=== PATIENT | female | born 1955 | race Caucasian/White ===

== ENCOUNTER 2016-09-26 10:51 | Inpatient (IN) | payer OTHER ==
[~2016-09-26] VITALS: Ht 157.5 cm; Wt 91.2 kg
[~2016-09-26 10:51] MED LIST: ACCOLATE20 MG; ACCOLATE20 MG PO; ADVAIR 250/501 DISK IH; ADVAIR 500/501 DISK IH; AMBIEN10 MG PO; ANTIVERT25 MG PO; ASCORBIC ACID500 M3 PO; ATROVENT 00.5 MG/2.5 IH; AVELOX400 MG PO; BACTRIM,SEPT1 TABLET; BYSTOLIC5 MG PO; CEFDINIR300 MG PO; COMBIVENT200 INHALA IH; COUGHTAB200 MG PO; COZAAR100 MG PO; COZAAR50 MG PO; CYCLOBENZAPRINE10 MG PO; DELTASONE20 M1 PO; DESYREL12.5 MG PO; DILAUDID2 MG PO; DULERA; DULERA 100 MCG/13 GM IH; DUONEB 2.5-0.5 M3 ML AEROSOL; DUONEB 2.5-0.5 M3 ML IH; ERGOCALCIF50000 UNIT PO; FLEXERIL10 MG PO; FUROSEMIDE20 MG; GABAPENTIN600 MG; GABAPENTIN600 MG PO; HUMALOG; HUMALOG100 UNIT/1 SC; HUMULIN N100 UNITS/ SC; HUMULIN NP100 UNIT/1 SC; HUMULIN R100 UNITS/ SC; HYDROXYZINE HCL25 MG PO; INSULIN; KADIAN30 MG PO; KEPPRA1000 MG PO; KEPPRA750 MG; KEPPRA750 MG PO; Keppra PO; LANTUS 10100 UNITS/ SC; LANTUS 3 M100 UNITS1 SC; LASIX20 MG PO; LEVETIRACETAM1000 MG PO; LEVETIRACETAM500 MG PO; LEVOTHROID,SYN0.1 MG PO; LEVOTHROID125 MCG PO; LEVOTHYROXINE125 MCG; LEVOTHYROXINE125 MCG PO; LEVOTHYROXINE137 MCG PO; LEVOXYL137 MCG PO; LORTAB 5-325 M1 EACH PO; LOSARTAN POTAS100 MG PO; LOSARTAN POTASS50 MG PO; MELOXICAM15 MG PO; METFORMIN HCL500 MG PO; MONTELUKAST SOD10 MG PO; MORPHINE SULFAT15 MG PO; MORPHINE SULFAT30 M2; MORPHINE SULFAT30 M2 PO; MS CONTIN,ORAMO30 MG PO; MULTI-VITAMIN1 EAC4 PO; NEURONTIN600 MG PO; NORCO 5/3251 TABLET PO; NORFLEX100 MG PO; NOVOLIN N100 UNIT/1 SQ; NOVOLIN N100 UNITS/ SC; NOVOLIN,HU100 UNITS1 SC; NOVOLOG100 UNIT/2 SQ; Neurontin PO; OXYCODONE HCL10 MG PO; PREDNISONE10 MG PO; PREDNISONE20 MG PO; PREDNISONE5 MG PO; QUETIAPINE FUM100 MG PO; SEROQUEL100 MG PO; SERTRALINE HCL100 MG PO; SERTRALINE HCL50 MG PO; SIMVASTATIN40 M1 G-TUBE; SIMVASTATIN80 MG; SIMVASTATIN80 MG PO; SINGULAIR10 MG PO; SYNTHROID112 MCG PO; SYNTHROID137 MCG PO; SYNTHROID25 MCG PO; TEMAZEPAM15 M1 PO; TUSSIN100 MG/5 M PO; VENTOLIN HFA18 GM IH; VICODIN 5-3001 EACH PO; VICODIN,LORT1 TABLET PO; VITAMIN B12 100MCG PO; ZAFIRLUKAST20 M1; ZAFIRLUKAST20 M1 PO; ZANAFLEX4 M1; ZESTRIL,PRINIVI10 MG PO; ZITHROMAX Z-PA250 MG PO; ZOCOR80 MG PO; ZOFRAN4 MG PO; ZOFRAN4 MG/2 ML IV; ZOLOFT100 MG; ZOLOFT100 MG PO; Zestril,Prinivil PO; metformin PO; oxyCODONE PO
[2016-09-26 11:44] LABS: HEMATOCRIT 35.3 % (36.0-46.0); MCH 26.4 PG (29.0-34.0); MCHC 31.4 G/DL (30.0-36.0); MCV 83.8 FL (83-99); PLATELET COUNT 132 K/uL (156-360); RBC DIS.WIDTH-CV 14.1 % (11.8-14.6); RBC DIS.WIDTH-SD 42.1 % (39-53); RED BLOOD COUNT 4.21 M/uL (3.80-5.20); WHITE BLOOD COUNT 9.6 K/uL (4.1-10.2)
[2016-09-26 12:04] LABS: CHLORIDE 102 mEq/L (99-109); POTASSIUM 4.9 mEq/L (3.7-5.4); SODIUM 137 mEq/L (136-147)
[2016-09-26 12:06] LABS: GLUCOSE 381 mg/dL (70-99)
[2016-09-26 12:07] LABS: ANION GAP 10 MEQ/L (2-14)
[2016-09-26 12:10] LABS: GFR ESTIMATE (CALCULATED) > 59 mL/min/; UREA NITROGEN (BUN) 17 mg/dL (9-23)
[2016-09-26 12:17] LABS: TROP-I INTERPRETATION NEGATIVE; TROPONIN-I < 0.01 ng/mL (0.0-0.30)
[2016-09-26] MEDS ORDERED: LOSARTAN POTAS100 MG PO (14:30)
[2016-09-26] MEDS ORDERED: CYCLOBENZAPRINE10 MG PO (14:31)
[2016-09-26] MEDS ORDERED: MECLIZINE HCL25 MG PO (14:31)
[2016-09-26] MEDS ORDERED: MORPHINE SULFAT30 M2 PO (14:32)
[2016-09-26 16:10] VITALS: BP 115/66
[2016-09-26 23:17] VITALS: BP 155/72
[2016-09-27 06:13] LABS: HEMATOCRIT 34.2 % (36.0-46.0); MCH 27.4 PG (29.0-34.0); MCHC 32.5 G/DL (30.0-36.0); MCV 84.4 FL (83-99); PLATELET COUNT 115 K/uL (156-360); RBC DIS.WIDTH-SD 43.2 % (39-53); RED BLOOD COUNT 4.05 M/uL (3.80-5.20); WHITE BLOOD COUNT 7.3 K/uL (4.1-10.2)
[2016-09-27 06:38] LABS: ANION GAP 7 MEQ/L (2-14); CHLORIDE 103 MEQ/L (99-109); GFR ESTIMATE (CALCULATED) > 59 mL/min/; GLUCOSE 398 mg/dL (70-99); POTASSIUM 5.1 MEQ/L (3.7-5.4); SAMPLE HEMOLYSIS CHECK 0; SAMPLE ICTERIC CHECK 0; SAMPLE LIPEMIA CHECK 0; SODIUM 138 MEQ/L (136-147); UREA NITROGEN (BUN) 23 mg/dL (9-23)
[2016-09-27 08:02] VITALS: BP 148/71
[2016-09-27 09:43] LABS: Estimated Average Glucose 243 mg/dL (70-123); HEMOGLOBIN A1c (GLYCOHEMOGLOB) 10.1 % HGB (Below 5.7)
[2016-09-27] MEDS ORDERED: BYSTOLIC5 MG PO (14:54)
[2016-09-27 15:07] VITALS: BP 131/72
[2016-09-27 22:54] VITALS: BP 143/78
[2016-09-28 06:32] LABS: EOSINOPHIL (%) 0 % (0-5); HEMATOCRIT 36.1 % (36.0-46.0); IMMATURE GRANULOCYTE (%) 0.4 % (0.0-0.7); IMMATURE GRANULOCYTE COUNT 0.1 K/uL; LYMPHOCYTE COUNT 0.9 K/uL (1.0-2.8); MCHC 31.6 G/DL (30.0-36.0); MCV 85.5 FL (83-99); MEAN PLAT.VOLUME 9.7 uM^3 (9.5-12.4); MONOCYTE COUNT 0.5 K/uL (0-0.8); NEUTROPHIL (%) 87.9 % (45-76); NEUTROPHIL COUNT 10.7 K/uL (1.8-6.4); RBC DIS.WIDTH-CV 14.4 % (11.8-14.6); RBC DIS.WIDTH-SD 44.8 % (39-53); RED BLOOD COUNT 4.22 M/uL (3.80-5.20)
[2016-09-28 06:35] LABS: WHITE BLOOD COUNT 12.2 K/uL (4.1-10.2)
[2016-09-28 06:36] LABS: PLATELET COUNT 152 K/uL (156-360)
[2016-09-28 06:52] LABS: ANION GAP 10 MEQ/L (2-14); CHLORIDE 99 MEQ/L (99-109); GFR ESTIMATE (CALCULATED) > 59 mL/min/; POTASSIUM 4.4 MEQ/L (3.7-5.4); SAMPLE HEMOLYSIS CHECK 0; SAMPLE ICTERIC CHECK 0; SAMPLE LIPEMIA CHECK 0; SODIUM 138 MEQ/L (136-147); UREA NITROGEN (BUN) 32 mg/dL (9-23)
[2016-09-28 06:53] LABS: GLUCOSE 405 mg/dL (70-99)
[2016-09-28 07:35] VITALS: BP 162/80
[2016-09-28 11:29] LABS: POINT-OF-CARE METER ID UU13113725
[2016-09-28 14:58] VITALS: BP 132/82
[2016-09-28 16:17] LABS: POINT-OF-CARE METER ID UU13113725
[2016-09-28 22:59] VITALS: BP 144/70
[2016-09-29 05:53] LABS: INFLUENZA A VIRAL ANTIGEN NEGATIVE; INFLUENZA B VIRAL ANTIGEN NEGATIVE
[2016-09-29 06:19] LABS: POINT-OF-CARE METER ID UU13113725
[2016-09-29 07:27] VITALS: BP 172/64
[2016-09-29] MEDS ORDERED: PREDNISONE20 MG PO (10:52)
[2016-09-29] MEDS ORDERED: CEFTIN500 MG PO (10:52)
[2016-09-29] MEDS ORDERED: DOXYCYCLINE HY100 M3 PO (10:52)
[2016-09-29 11:16] LABS: POINT-OF-CARE METER ID UU13113725
[2016-09-29 12:32] LABS: POINT-OF-CARE METER ID UU13113725
[2016-09-30 08:29] LABS: INTERNAL CONTROL VALID? YES
== END 2016-09-29 13:08 | disposition home health service (06) | DRG 190 ==
LOC: EME 10:51 → 5EAST 13:35 → EDOF 13:35 → 5EAST 15:31
PROVIDERS: Emergency Medicine; Hospitalist; Internal Medicine
PROC: 5A09357 Assistance with Respiratory Ventilation, Less than 24 Consecutive Hours, Continuous Positive Airway Pressure (ICD-10-PCS; principal; 2016-09-26)
DX: J44.0 Chronic obstructive pulmonary disease with (acute) lower respiratory infection (principal); J18.9 Pneumonia, unspecified organism; J44.1 Chronic obstructive pulmonary disease with (acute) exacerbation; G47.33 Obstructive sleep apnea (adult) (pediatric); J96.21 Acute and chronic respiratory failure with hypoxia; Z99.81 Dependence on supplemental oxygen; I10 Essential (primary) hypertension; E78.5 Hyperlipidemia, unspecified; E03.9 Hypothyroidism, unspecified; E11.65 Type 2 diabetes mellitus with hyperglycemia; E66.9 Obesity, unspecified; F41.9 Anxiety disorder, unspecified; G40.909 Epilepsy, unspecified, not intractable, without status epilepticus; Z68.36 Body mass index [BMI] 36.0-36.9, adult
CPT/HCPCS: 71010; 80048; 81003; 82948; 83036; 84484; 85025; 85027; 86609 90; 87040; 87449; 87502; 93005; 94640; 94640 76; 94660; 94760; 94799; 99202; 99281; 99285; J0456; J0696; J1644; J1815; J2543; J2920; J3370; J7050; J7512

== ENCOUNTER 2016-11-01 15:32 | Inpatient (IN) | payer OTHER ==
[~2016-11-01] VITALS: Ht 162.6 cm; Wt 89.1 kg
[~2016-11-01 15:32] MED LIST changes: +CEFTIN500 MG PO; +DOXYCYCLINE HY100 M3 PO; +MECLIZINE HCL25 MG PO
[2016-11-01 16:42] LABS: POINT-OF-CARE METER ID UU13113800
[2016-11-01 16:55] LABS: HEMATOCRIT 39.5 % (36.0-46.0); MCH 27.4 PG (29.0-34.0); MCHC 31.4 G/DL (30.0-36.0); MCV 87.2 FL (83-99); MEAN PLAT.VOLUME 11.1 uM^3 (9.5-12.4); PLATELET COUNT 115 K/uL (156-360); RBC DIS.WIDTH-CV 14.9 % (11.8-14.6); RBC DIS.WIDTH-SD 47.8 % (39-53); RED BLOOD COUNT 4.53 M/uL (3.80-5.20); WHITE BLOOD COUNT 6.3 K/uL (4.1-10.2)
[2016-11-01 17:07] LABS: CHLORIDE 103 mEq/L (99-109); POTASSIUM 4.6 mEq/L (3.7-5.4); SODIUM 141 mEq/L (136-147)
[2016-11-01 17:08] LABS: GLUCOSE 350 mg/dL (70-99)
[2016-11-01 17:10] LABS: ANION GAP 10 MEQ/L (2-14)
[2016-11-01 17:12] LABS: GFR ESTIMATE (CALCULATED) 41 mL/min/
[2016-11-01 17:13] LABS: UREA NITROGEN (BUN) 21 mg/dL (9-23)
[2016-11-01 17:14] LABS: TROP-I INTERPRETATION NEGATIVE; TROPONIN-I < 0.01 ng/mL (0.0-0.30)
[2016-11-01] MEDS ORDERED: ZONISAMIDE100 MG PO (20:02)
[2016-11-02] VITALS (7 sets, daily range): BP systolic 113–122; BP diastolic 55–84
[2016-11-02 05:49] LABS: HEMATOCRIT 33.4 % (36.0-46.0); MCH 26.8 PG (29.0-34.0); MCHC 30.5 G/DL (30.0-36.0); MCV 87.7 FL (83-99); MEAN PLAT.VOLUME 11.2 uM^3 (9.5-12.4); PLATELET COUNT 89 K/uL (156-360); RBC DIS.WIDTH-CV 15.3 % (11.8-14.6); RBC DIS.WIDTH-SD 48.9 % (39-53); RED BLOOD COUNT 3.81 M/uL (3.80-5.20); WHITE BLOOD COUNT 5.2 K/uL (4.1-10.2)
[2016-11-02 05:57] LABS: ANION GAP 7 MEQ/L (2-14); CHLORIDE 102 MEQ/L (99-109); GFR ESTIMATE (CALCULATED) > 59 mL/min/; GLUCOSE 389 mg/dL (70-99); SAMPLE HEMOLYSIS CHECK 0; SAMPLE ICTERIC CHECK 0; SAMPLE LIPEMIA CHECK 0; SODIUM 138 MEQ/L (136-147); UREA NITROGEN (BUN) 23 mg/dL (9-23)
[2016-11-02 22:15] LABS: POINT-OF-CARE METER ID UU14188577
[2016-11-03 05:54] LABS: EOSINOPHIL (%) 1.6 % (0-5); EOSINOPHIL COUNT 0.1 K/uL (0-0.3); HEMATOCRIT 28.8 % (36.0-46.0); IMMATURE GRANULOCYTE (%) 0.4 % (0.0-0.7); INSTRUMENT ABS NEUTROPHIL CT 3.2 K/uL; LYMPHOCYTE COUNT 1.4 K/uL (1.0-2.8); MCH 27.3 PG (29.0-34.0); MCHC 30.9 G/DL (30.0-36.0); MCV 88.3 FL (83-99); MONOCYTE COUNT 0.4 K/uL (0-0.8); NEUTROPHIL (%) 62.8 % (45-76); NEUTROPHIL COUNT 3.2 K/uL (1.8-6.4); PLATELET COUNT 69 K/uL (156-360); RBC DIS.WIDTH-CV 14.9 % (11.8-14.6); RED BLOOD COUNT 3.26 M/uL (3.80-5.20); WHITE BLOOD COUNT 5.1 K/uL (4.1-10.2)
[2016-11-03 06:16] LABS: ANION GAP 4 MEQ/L (2-14); CHLORIDE 105 MEQ/L (99-109); GFR ESTIMATE (CALCULATED) > 59 mL/min/; GLUCOSE 323 mg/dL (70-99); POTASSIUM 4.5 MEQ/L (3.7-5.4); SAMPLE HEMOLYSIS CHECK 0; SAMPLE ICTERIC CHECK 0; SAMPLE LIPEMIA CHECK 0; SODIUM 140 MEQ/L (136-147); UREA NITROGEN (BUN) 19 mg/dL (9-23)
[2016-11-03 06:43] LABS: POINT-OF-CARE METER ID UU14149397
[2016-11-03 08:00] VITALS: BP 111/53
[2016-11-03 12:02] LABS: POINT-OF-CARE METER ID UU14188577
[2016-11-03 16:00] VITALS: BP 122/68
[2016-11-03 16:42] LABS: POINT-OF-CARE METER ID UU14188577
[2016-11-03 22:16] LABS: POINT-OF-CARE METER ID UU14149397
[2016-11-03 22:26] VITALS: BP 128/70
[2016-11-04 08:38] LABS: EOSINOPHIL (%) 0.6 % (0-5); HEMATOCRIT 31.4 % (36.0-46.0); IMMATURE GRANULOCYTE (%) 0.9 % (0.0-0.7); IMMATURE GRANULOCYTE COUNT 0.1 K/uL; LYMPHOCYTE COUNT 1.1 K/uL (1.0-2.8); MCH 27.6 PG (29.0-34.0); MCHC 32.2 G/DL (30.0-36.0); MCV 85.8 FL (83-99); MEAN PLAT.VOLUME 10.7 uM^3 (9.5-12.4); MONOCYTE (%) 4.3 % (3-12); MONOCYTE COUNT 0.3 K/uL (0-0.8); NEUTROPHIL (%) 76.8 % (45-76); PLATELET COUNT 81 K/uL (156-360); RBC DIS.WIDTH-CV 14.6 % (11.8-14.6); RBC DIS.WIDTH-SD 45.8 % (39-53); RED BLOOD COUNT 3.66 M/uL (3.80-5.20); WHITE BLOOD COUNT 6.6 K/uL (4.1-10.2)
[2016-11-04 08:58] LABS: ANION GAP 8 MEQ/L (2-14); CHLORIDE 103 MEQ/L (99-109); POTASSIUM 4.1 MEQ/L (3.7-5.4); SAMPLE HEMOLYSIS CHECK 0; SAMPLE ICTERIC CHECK 0; SAMPLE LIPEMIA CHECK 0; SODIUM 139 MEQ/L (136-147)
[2016-11-04 09:03] LABS: GFR ESTIMATE (CALCULATED) > 59 mL/min/; GLUCOSE 316 mg/dL (70-99); UREA NITROGEN (BUN) 19 mg/dL (9-23)
[2016-11-04 10:41] VITALS: BP 131/72
[2016-11-04 11:57] LABS: POINT-OF-CARE METER ID UU14188577
[2016-11-04] MEDS ORDERED: VIMPAT50 MG PO (12:27)
[2016-11-04] MEDS ORDERED: ZONISAMIDE100 MG PO (12:27)
[2016-11-04 16:58] VITALS: BP 125/60
[2016-11-04 23:37] VITALS: BP 140/79
[2016-11-05 08:30] VITALS: BP 127/60
== END 2016-11-05 13:15 | DRG 101 ==
LOC: EME 15:32 → EDOF 19:44 → 3EAST 19:44
PROVIDERS: Hospitalist; Physician Assistant Medical; Student in an Organized Health Care Education/Training Program
DX: G40.909 Epilepsy, unspecified, not intractable, without status epilepticus (principal); S82.201A Unspecified fracture of shaft of right tibia, initial encounter for closed fracture; S82.401A Unspecified fracture of shaft of right fibula, initial encounter for closed fracture; W18.30XA Fall on same level, unspecified, initial encounter; Y92.000 Kitchen of unspecified non-institutional (private) residence as the place of occurrence of the external cause; T84.196A Other mechanical complication of internal fixation device of bone of right lower leg, initial encounter; N17.9 Acute kidney failure, unspecified; E11.65 Type 2 diabetes mellitus with hyperglycemia; G47.33 Obstructive sleep apnea (adult) (pediatric); D64.89 Other specified anemias; R26.89 Other abnormalities of gait and mobility; E55.9 Vitamin D deficiency, unspecified; I10 Essential (primary) hypertension; J44.9 Chronic obstructive pulmonary disease, unspecified; J45.909 Unspecified asthma, uncomplicated; G89.29 Other chronic pain; M54.2 Cervicalgia; K21.9 Gastro-esophageal reflux disease without esophagitis; E78.5 Hyperlipidemia, unspecified; E03.9 Hypothyroidism, unspecified; E11.40 Type 2 diabetes mellitus with diabetic neuropathy, unspecified; G43.909 Migraine, unspecified, not intractable, without status migrainosus; F32.9 Major depressive disorder, single episode, unspecified; Z79.4 Long term (current) use of insulin
CPT/HCPCS: 71010; 73564; 73610; 80048; 81003; 82306; 82948; 84484; 85025; 85027; 87040; 93005; 94640; 94640 76; 94799; 95819; 97530 GP; 99202; 99281; 99285; J1170; J1650; J1815; J2270; J7030

== ENCOUNTER 2016-11-16 19:47 | Inpatient (IN) | payer OTHER ==
[~2016-11-16] VITALS: Ht 157.5 cm; Wt 93.7 kg
[~2016-11-16 19:47] MED LIST changes: +VIMPAT50 MG PO; +ZONISAMIDE100 MG PO
[2016-11-16 20:54] LABS: ADD MIUA? YES; BILIRUBIN NEGATIVE; BLOOD NEGATIVE; COLOR YELLOW ((YELLOW)); GLUCOSE (STRIP) >=500; KETONES NEGATIVE; LEUKOCYTES LARGE; NITRITE NEGATIVE; PROTEIN (STRIP) 30; SPECIFIC GRAVITY 1.014 (1.000-1.030); UROBILINOGEN 0.2 MG/DL (0.2-1.0)
[2016-11-16 21:05] LABS: EOSINOPHIL (%) 3.3 % (0-5); EOSINOPHIL COUNT 0.2 K/uL (0-0.3); HEMATOCRIT 35.3 % (36.0-46.0); IMMATURE GRANULOCYTE (%) 0.3 % (0.0-0.7); INSTRUMENT ABS NEUTROPHIL CT 3.8 K/uL; LYMPHOCYTE COUNT 1.7 K/uL (1.0-2.8); MCH 27.7 PG (29.0-34.0); MCHC 30.9 G/DL (30.0-36.0); MCV 89.6 FL (83-99); MEAN PLAT.VOLUME 9.3 uM^3 (9.5-12.4); MONOCYTE (%) 6.8 % (3-12); MONOCYTE COUNT 0.4 K/uL (0-0.8); NEUTROPHIL (%) 62.1 % (45-76); NEUTROPHIL COUNT 3.8 K/uL (1.8-6.4); PLATELET COUNT 141 K/uL (156-360); RBC DIS.WIDTH-CV 15.2 % (11.8-14.6); RBC DIS.WIDTH-SD 49.7 % (39-53); RED BLOOD COUNT 3.94 M/uL (3.80-5.20); WHITE BLOOD COUNT 6.2 K/uL (4.1-10.2)
[2016-11-16 21:09] LABS: CHLORIDE 106 mEq/L (99-109); POTASSIUM 4.4 mEq/L (3.7-5.4); SODIUM 142 mEq/L (136-147)
[2016-11-16 21:11] LABS: GLUCOSE 121 mg/dL (70-99)
[2016-11-16 21:12] LABS: BACTERIA 1+ /HPF; EPITHELIAL CELLS 1+ /HPF; MUCUS NONE SEEN /LPF; RED BLOOD CELLS 0-5 /HPF (0-5); UCUL ADDED? NO; WHITE BLOOD CELLS 40-50 /HPF (0-5)
[2016-11-16 21:13] LABS: ANION GAP 11 MEQ/L (2-14)
[2016-11-16 21:15] LABS: GFR ESTIMATE (CALCULATED) 35 mL/min/
[2016-11-16 21:16] LABS: UREA NITROGEN (BUN) 26 mg/dL (9-23)
[2016-11-17] MEDS ORDERED: KEPPRA500 MG PO ×2 (00:22→00:29)
[2016-11-17] MEDS ORDERED: LIPITOR40 MG PO (00:26)
[2016-11-17] MEDS ORDERED: SEROQUEL50 MG PO (00:27)
[2016-11-17] MEDS ORDERED: SEROQUEL12.5 MG PO (00:28)
[2016-11-17] MEDS ORDERED: ZOLOFT50 MG PO (00:29)
[2016-11-17 04:00] VITALS: BP 104/59
[2016-11-17 07:38] VITALS: BP 132/63
[2016-11-17 07:50] LABS: POINT-OF-CARE METER ID UU14149397
[2016-11-17 11:46] VITALS: BP 141/67
[2016-11-17 16:04] VITALS: BP 158/88
[2016-11-17 16:53] LABS: POINT-OF-CARE METER ID UU14149397
[2016-11-17 19:41] VITALS: BP 152/68
[2016-11-17 21:35] LABS: POINT-OF-CARE METER ID UU14149397
[2016-11-17 23:29] VITALS: BP 174/83
[2016-11-18 07:57] VITALS: BP 147/70
[2016-11-18 11:01] LABS: ANION GAP 6 MEQ/L (2-14); CHLORIDE 104 MEQ/L (99-109); GFR ESTIMATE (CALCULATED) > 59 mL/min/; POTASSIUM 4.6 MEQ/L (3.7-5.4); SAMPLE HEMOLYSIS CHECK 0; SAMPLE ICTERIC CHECK 0; SAMPLE LIPEMIA CHECK 0; SODIUM 139 MEQ/L (136-147); UREA NITROGEN (BUN) 13 mg/dL (9-23)
[2016-11-18 11:02] LABS: GLUCOSE 264 mg/dL (70-99)
[2016-11-18 16:16] VITALS: BP 181/55
[2016-11-18 16:58] LABS: POINT-OF-CARE METER ID UU14149397
[2016-11-18 18:51] VITALS: BP 181/53
[2016-11-18 21:18] LABS: POINT-OF-CARE METER ID UU14188577
[2016-11-18 23:58] VITALS: BP 116/65
[2016-11-19 08:20] VITALS: BP 125/65
[2016-11-19 11:53] LABS: POINT-OF-CARE METER ID UU14188577
[2016-11-19] MEDS ORDERED: LEVETIRACETAM500 MG PO (15:14)
[2016-11-19] MEDS ORDERED: HYDROMORPHONE HC2 MG PO ×2 (15:15→15:18)
[2016-11-19 16:22] VITALS: BP 149/80
[2016-11-19 16:42] LABS: POINT-OF-CARE METER ID UU14149397
[2016-11-19 21:39] LABS: POINT-OF-CARE METER ID UU14149397
[2016-11-19 23:10] VITALS: BP 175/79
[2016-11-20 07:13] VITALS: BP 168/71
[2016-11-20 12:08] LABS: POINT-OF-CARE METER ID UU14149397
[2016-11-20 15:03] VITALS: BP 164/59
[2016-11-20 20:05] VITALS: BP 168/80
[2016-11-21 08:09] VITALS: BP 119/89
[2016-11-21 12:36] VITALS: BP 161/81
== END 2016-11-21 13:21 | DRG 683 ==
LOC: EME → EDBD 19:47 → 3EAST 23:56 → EDOF 23:56 → 3EAST 11-17 01:21
PROVIDERS: Emergency Medicine; Internal Medicine
DX: N17.9 Acute kidney failure, unspecified (principal); F33.9 Major depressive disorder, recurrent, unspecified; G40.409 Other generalized epilepsy and epileptic syndromes, not intractable, without status epilepticus; G47.30 Sleep apnea, unspecified; K21.9 Gastro-esophageal reflux disease without esophagitis; G43.909 Migraine, unspecified, not intractable, without status migrainosus; E03.9 Hypothyroidism, unspecified; I95.9 Hypotension, unspecified; E78.5 Hyperlipidemia, unspecified; I10 Essential (primary) hypertension; S82.201D Unspecified fracture of shaft of right tibia, subsequent encounter for closed fracture with routine healing; E11.9 Type 2 diabetes mellitus without complications; G89.29 Other chronic pain
CPT/HCPCS: 71010; 73590; 80048; 81003; 82948; 83605; 85025; 87040; 94760; 99202; 99281; 99285; J0696; J1815; J7030; J7050

== ENCOUNTER 2016-12-25 11:51 | Inpatient (IN) | payer OTHER ==
[~2016-12-25] VITALS: Ht 160 cm; Wt 89.5 kg
[~2016-12-25 11:51] MED LIST changes: +HYDROMORPHONE HC2 MG PO; +KEPPRA500 MG PO; +LIPITOR40 MG PO; +SEROQUEL12.5 MG PO; +SEROQUEL50 MG PO; +ZOLOFT50 MG PO
[2016-12-25 12:31] LABS: POINT-OF-CARE METER ID UU14100415
[2016-12-25 13:28] LABS: CHLORIDE 99 mEq/L (99-109); HEMATOCRIT 37.8 % (36.0-46.0); MCH 27.6 PG (29.0-34.0); MCHC 31.5 G/DL (30.0-36.0); MCV 87.7 FL (83-99); MEAN PLAT.VOLUME 10.7 uM^3 (9.5-12.4); PLATELET COUNT 89 K/uL (156-360); POTASSIUM 4.5 mEq/L (3.7-5.4); RBC DIS.WIDTH-CV 13.2 % (11.8-14.6); RBC DIS.WIDTH-SD 42.4 % (39-53); RED BLOOD COUNT 4.31 M/uL (3.80-5.20); SODIUM 139 mEq/L (136-147); WHITE BLOOD COUNT 5.6 K/uL (4.1-10.2)
[2016-12-25 13:31] LABS: ANION GAP 11 MEQ/L (2-14)
[2016-12-25 13:34] LABS: GFR ESTIMATE (CALCULATED) > 59 mL/min/
[2016-12-25 13:35] LABS: UREA NITROGEN (BUN) 12 mg/dL (9-23)
[2016-12-25 13:39] LABS: TROP-I INTERPRETATION NEGATIVE; TROPONIN-I < 0.01 ng/mL (0.0-0.30)
[2016-12-25 13:48] LABS: GLUCOSE 436 mg/dL (70-99)
[2016-12-25 14:10] LABS: ADD MIUA? YES; BILIRUBIN NEGATIVE; BLOOD NEGATIVE; COLOR YELLOW ((YELLOW)); GLUCOSE (STRIP) >=500; KETONES 5; LEUKOCYTES MODERATE; NITRITE NEGATIVE; PROTEIN (STRIP) NEGATIVE; SPECIFIC GRAVITY 1.016 (1.000-1.030); UROBILINOGEN 0.2 MG/DL (0.2-1.0)
[2016-12-25 14:22] LABS: BACTERIA RARE /HPF; BUDDING YEAST 3+; EPITHELIAL CELLS RARE /HPF; MUCUS TRACE /LPF; RED BLOOD CELLS 15-20 /HPF (0-5); UCUL ADDED? YES; WHITE BLOOD CELLS TNTC /HPF (0-5)
[2016-12-25] MEDS ORDERED: SIMVASTATIN80 MG PO (15:23)
[2016-12-25] MEDS ORDERED: ZONISAMIDE100 MG PO (15:24)
[2016-12-25] MEDS ORDERED: KEPPRA500 MG PO ×2 (15:24)
[2016-12-25] MEDS ORDERED: FLEXERIL10 MG PO (15:25)
[2016-12-25] MEDS ORDERED: MECLIZINE HCL25 MG PO (15:25)
[2016-12-25] MEDS ORDERED: SINGULAIR10 MG PO (15:26)
[2016-12-25] MEDS ORDERED: HUMULIN N100 UNITS/ SC (15:26)
[2016-12-25] MEDS ORDERED: MORPHINE SULFAT30 M2 PO (15:26)
[2016-12-25 15:59] LABS: POINT-OF-CARE METER ID UU14100415
[2016-12-25 16:40] VITALS: BP 146/66
[2016-12-25 17:42] LABS: BASE EXCESS 3.1 mEq/L (-3 to +3); CARBOXY HGB 2.1 % (0-5); METHEMOGLOBIN 1.4 % (0-1.5); PO2 65 mm Hg (80-100); pH 7.38 (7.35-7.45)
[2016-12-25 17:43] LABS: COMMENTS - BLOOD GASES A+C+; DEVICE CANNULA; O2 FLOW 1 L/MIN; PCO2 49 mm Hg (35-45); SITE RR; TOTAL RESP RATE 16 resp/min
[2016-12-25 19:27] VITALS: BP 141/70
[2016-12-25 19:58] LABS: METH RESISTANT S AUREUS PCR NEGATIVE (NEGATIVE)
[2016-12-25 20:05] LABS: PROBE CHECK PASS; SPECIMEN PROCESSING CONTROL PASS
[2016-12-25 22:39] VITALS: BP 174/82
[2016-12-25 23:35] VITALS: BP 159/80
[2016-12-26 03:57] VITALS: BP 149/73
[2016-12-26 06:03] LABS: POINT-OF-CARE METER ID UU13113725
[2016-12-26 06:33] LABS: MCH 28.6 PG (29.0-34.0); MCHC 32.8 G/DL (30.0-36.0); MCV 87.2 FL (83-99); MEAN PLAT.VOLUME 10.2 uM^3 (9.5-12.4); PLATELET COUNT 98 K/uL (156-360); RBC DIS.WIDTH-CV 13.3 % (11.8-14.6); RBC DIS.WIDTH-SD 42.6 % (39-53); RED BLOOD COUNT 3.67 M/uL (3.80-5.20); WHITE BLOOD COUNT 8.1 K/uL (4.1-10.2)
[2016-12-26 07:00] LABS: ANION GAP 8 MEQ/L (2-14); CHLORIDE 102 MEQ/L (99-109); GFR ESTIMATE (CALCULATED) > 59 mL/min/; GLUCOSE 368 mg/dL (70-99); POTASSIUM 4.3 MEQ/L (3.7-5.4); SAMPLE HEMOLYSIS CHECK 0; SAMPLE ICTERIC CHECK 0; SAMPLE LIPEMIA CHECK 0; SODIUM 138 MEQ/L (136-147); UREA NITROGEN (BUN) 14 mg/dL (9-23)
[2016-12-26 07:10] VITALS: BP 114/55
[2016-12-26 10:56] LABS: POINT-OF-CARE METER ID UU13113725
[2016-12-26 11:49] VITALS: BP 129/58
[2016-12-26 11:54] LABS: POINT-OF-CARE METER ID UU13113725
[2016-12-26 15:27] VITALS: BP 144/62
[2016-12-26 19:02] VITALS: BP 133/65
[2016-12-26 23:23] VITALS: BP 129/67
[2016-12-27 03:04] VITALS: BP 140/58
[2016-12-27 07:25] LABS: ANION GAP 10 MEQ/L (2-14); CHLORIDE 103 MEQ/L (99-109); GFR ESTIMATE (CALCULATED) > 59 mL/min/; POTASSIUM 4.4 MEQ/L (3.7-5.4); SAMPLE HEMOLYSIS CHECK 0; SAMPLE ICTERIC CHECK 0; SAMPLE LIPEMIA CHECK 0; SODIUM 138 MEQ/L (136-147); UREA NITROGEN (BUN) 19 mg/dL (9-23)
[2016-12-27 07:26] LABS: GLUCOSE 438 mg/dL (70-99)
[2016-12-27 07:55] VITALS: BP 172/81
[2016-12-27 12:18] LABS: GFR ESTIMATE (CALCULATED) > 59 mL/min/
[2016-12-27 14:02] VITALS: BP 145/71
[2016-12-27 16:51] VITALS: BP 139/65
[2016-12-27 20:01] VITALS: BP 146/70
[2016-12-27 23:23] VITALS: BP 133/73
[2016-12-27 23:33] LABS: POINT-OF-CARE METER ID UU13113725
[2016-12-28 03:31] VITALS: BP 141/76
[2016-12-28 06:44] VITALS: BP 187/88
[2016-12-28 11:05] VITALS: BP 148/85
[2016-12-28 16:45] VITALS: BP 157/73
[2016-12-28 19:27] VITALS: BP 144/78
[2016-12-29 00:05] VITALS: BP 166/76
[2016-12-29 03:47] VITALS: BP 175/90
[2016-12-29 03:57] VITALS: BP 176/86
[2016-12-29 05:25] VITALS: BP 160/77
[2016-12-29 06:52] VITALS: BP 188/84
[2016-12-29 08:25] LABS: ANION GAP 9 MEQ/L (2-14); CHLORIDE 101 MEQ/L (99-109); GFR ESTIMATE (CALCULATED) > 59 mL/min/; GLUCOSE 363 mg/dL (70-99); POTASSIUM 4.8 MEQ/L (3.7-5.4); SAMPLE HEMOLYSIS CHECK 0; SAMPLE ICTERIC CHECK 0; SAMPLE LIPEMIA CHECK 0; SODIUM 141 MEQ/L (136-147); UREA NITROGEN (BUN) 22 mg/dL (9-23)
[2016-12-29] MEDS ORDERED: PREDNISONE20 MG PO (10:50)
[2016-12-29] MEDS ORDERED: LEVEMIR100 UNIT/2 SC (10:50)
[2016-12-29] MEDS ORDERED: AMLODIPINE BESY10 MG PO (10:50)
[2016-12-29] MEDS ORDERED: SPIRIVA RESPIMAT4 GM IH (10:50)
[2016-12-29] MEDS ORDERED: AUGMENTIN875 MG PO (10:50)
[2016-12-29] MEDS ORDERED: ADVAIR HFA120 INHALA IH (10:50)
[2016-12-29 16:15] LABS: POINT-OF-CARE METER ID UU13113725
[2016-12-29 16:17] LABS: POINT-OF-CARE METER ID UU13113725
== END 2016-12-29 12:20 | disposition home health service (06) | DRG 190 ==
LOC: EME 11:51 → 5EAST 14:51 → EDOF 14:51 → 5EAST 16:08
PROVIDERS: Emergency Medicine; Hospitalist; Internal Medicine; Internal Medicine Pulmonary Disease
DX: J44.1 Chronic obstructive pulmonary disease with (acute) exacerbation (principal); J96.22 Acute and chronic respiratory failure with hypercapnia; J98.11 Atelectasis; J96.21 Acute and chronic respiratory failure with hypoxia; E87.4 Mixed disorder of acid-base balance; F11.20 Opioid dependence, uncomplicated; F05 Delirium due to known physiological condition; F33.9 Major depressive disorder, recurrent, unspecified; G47.33 Obstructive sleep apnea (adult) (pediatric); E03.9 Hypothyroidism, unspecified; G40.909 Epilepsy, unspecified, not intractable, without status epilepticus; J98.4 Other disorders of lung; Z99.81 Dependence on supplemental oxygen; E11.65 Type 2 diabetes mellitus with hyperglycemia; I10 Essential (primary) hypertension; E78.5 Hyperlipidemia, unspecified; K21.9 Gastro-esophageal reflux disease without esophagitis; G43.909 Migraine, unspecified, not intractable, without status migrainosus; E66.9 Obesity, unspecified; Z68.34 Body mass index [BMI] 34.0-34.9, adult; G89.4 Chronic pain syndrome; Z87.442 Personal history of urinary calculi; J45.909 Unspecified asthma, uncomplicated
CPT/HCPCS: 36600; 71010; 71275; 80048; 80202; 81003; 82565; 82803; 82948; 83605; 84484; 85027; 87040; 87086; 87641; 93005; 93970; 94640; 94640 76; 94760; 94799; 99202; 99281; 99285; J0360; J0692; J1644; J1815; J2543; J2920; J2930; J3370; J7030; J7050; J7512; J7644

== ENCOUNTER 2017-01-12 22:17 | Inpatient (IN) | payer OTHER ==
[~2017-01-12] VITALS: Ht 162.6 cm; Wt 83.5 kg
[~2017-01-12 22:17] MED LIST changes: +ADVAIR HFA120 INHALA IH; +AMLODIPINE BESY10 MG PO; +AUGMENTIN875 MG PO; +LEVEMIR100 UNIT/2 SC; +SPIRIVA RESPIMAT4 GM IH
[2017-01-12 22:57] LABS: BASE EXCESS 0.2 mEq/L (-3 to +3); CARBOXY HGB 2.1 % (0-5); COMMENTS - BLOOD GASES C; DEVICE NC; O2 FLOW 4 L/MIN; PCO2 46 mm Hg (35-45); PO2 64 mm Hg (80-100); SITE LB; TOTAL RESP RATE 22 resp/min; pH 7.36 (7.35-7.45)
[2017-01-12 23:15] LABS: ADD MIUA? YES; BILIRUBIN NEGATIVE; BLOOD NEGATIVE; COLOR YELLOW ((YELLOW)); GLUCOSE (STRIP) >=500; KETONES NEGATIVE; LEUKOCYTES LARGE; NITRITE NEGATIVE; PROTEIN (STRIP) 30; SPECIFIC GRAVITY 1.017 (1.000-1.030); UROBILINOGEN 0.2 MG/DL (0.2-1.0)
[2017-01-12 23:25] LABS: CHLORIDE 102 mEq/L (99-109); POTASSIUM 4.1 mEq/L (3.7-5.4); SODIUM 136 mEq/L (136-147)
[2017-01-12 23:27] LABS: GLUCOSE 277 mg/dL (70-99)
[2017-01-12 23:28] LABS: ANION GAP 11 MEQ/L (2-14)
[2017-01-12 23:29] LABS: TOTAL BILIRUBIN 0.5 mg/dL (0.0-1.0)
[2017-01-12 23:31] LABS: ALKALINE PHOSPHATASE 259 IU/L (3-129); GFR ESTIMATE (CALCULATED) 49 mL/min/
[2017-01-12 23:32] LABS: UREA NITROGEN (BUN) 17 mg/dL (9-23)
[2017-01-12 23:37] LABS: TROP-I INTERPRETATION NEGATIVE; TROPONIN-I < 0.01 ng/mL (0.0-0.30)
[2017-01-12 23:42] LABS: EOSINOPHIL (%) 0.8 % (0-5); EOSINOPHIL COUNT 0.1 K/uL (0-0.3); HEMATOCRIT 36.5 % (36.0-46.0); IMMATURE GRANULOCYTE (%) 0.5 % (0.0-0.7); INSTRUMENT ABS NEUTROPHIL CT 7.8 K/uL; LYMPHOCYTE COUNT 0.5 K/uL (1.0-2.8); MCH 27.5 PG (29.0-34.0); MCHC 31.2 G/DL (30.0-36.0); MONOCYTE (%) 3.5 % (3-12); MONOCYTE COUNT 0.3 K/uL (0-0.8); NEUTROPHIL (%) 89.8 % (45-76); NEUTROPHIL COUNT 7.8 K/uL (1.8-6.4); PLATELET COUNT 109 K/uL (156-360); RBC DIS.WIDTH-CV 13.4 % (11.8-14.6); RBC DIS.WIDTH-SD 43.4 % (39-53); RED BLOOD COUNT 4.15 M/uL (3.80-5.20); WHITE BLOOD COUNT 8.7 K/uL (4.1-10.2)
[2017-01-13 00:26] LABS: RED BLOOD CELLS 0-5 /HPF (0-5); WHITE BLOOD CELLS TNTC /HPF (0-5)
[2017-01-13 00:27] LABS: BACTERIA 2+ /HPF; CASTS NONE SEEN /LPF; CRYSTALS NONE SEEN; EPITHELIAL CELLS RARE /HPF; MUCUS NONE SEEN /LPF; UCUL ADDED? YES
[2017-01-13 05:34] LABS: HEMATOCRIT 34.2 % (36.0-46.0); MCH 27.6 PG (29.0-34.0); MCHC 31.6 G/DL (30.0-36.0); MCV 87.5 FL (83-99); PLATELET COUNT 96 K/uL (156-360); RBC DIS.WIDTH-CV 13.3 % (11.8-14.6); RBC DIS.WIDTH-SD 42.9 % (39-53); RED BLOOD COUNT 3.91 M/uL (3.80-5.20); WHITE BLOOD COUNT 8.6 K/uL (4.1-10.2)
[2017-01-13 05:45] LABS: CHLORIDE 105 mEq/L (99-109)
[2017-01-13 05:46] LABS: POTASSIUM 4.6 mEq/L (3.7-5.4); SODIUM 137 mEq/L (136-147)
[2017-01-13 05:47] LABS: GLUCOSE 394 mg/dL (70-99)
[2017-01-13 05:49] LABS: ANION GAP 8 MEQ/L (2-14)
[2017-01-13 05:51] LABS: GFR ESTIMATE (CALCULATED) > 59 mL/min/
[2017-01-13 05:52] LABS: UREA NITROGEN (BUN) 17 mg/dL (9-23)
[2017-01-13 05:55] LABS: EOSINOPHIL (%) 0 % (0-5); HEMATOLOGY COMMENT 1 SMEAR COMPATIBLE; IMMATURE GRANULOCYTE (%) 1.3 % (0.0-0.7); IMMATURE GRANULOCYTE COUNT 0.1 K/uL; LYMPHOCYTE COUNT 0.4 K/uL (1.0-2.8); MONOCYTE (%) 1.5 % (3-12); MONOCYTE COUNT 0.1 K/uL (0-0.8); NEUTROPHIL (%) 92.5 % (45-76)
[2017-01-13 09:41] LABS: POINT-OF-CARE METER ID UU13113702
[2017-01-13] MEDS ORDERED: LEVETIRACETAM1000 MG PO ×2 (09:42→09:43)
[2017-01-13] MEDS ORDERED: QUETIAPINE FUM100 MG PO (09:45)
[2017-01-13] MEDS ORDERED: LIPITOR20 MG PO (09:46)
[2017-01-13 18:00] VITALS: BP 172/84
[2017-01-13 19:25] VITALS: BP 163/85
[2017-01-13 23:22] VITALS: BP 128/67
[2017-01-14 03:08] VITALS: BP 130/65
[2017-01-14 07:35] VITALS: BP 135/63
[2017-01-14 07:51] LABS: INTERNAL CONTROL VALID? YES
[2017-01-14 08:14] LABS: POINT-OF-CARE METER ID UU14100415
[2017-01-14 11:55] VITALS: BP 135/62
[2017-01-14 12:03] LABS: POINT-OF-CARE METER ID UU14162508
[2017-01-14 15:55] VITALS: BP 136/65
[2017-01-14 19:30] VITALS: BP 154/81
[2017-01-14 23:58] VITALS: BP 134/68
[2017-01-15 00:18] LABS: POINT-OF-CARE METER ID UU14162508
[2017-01-15 03:29] VITALS: BP 146/70
[2017-01-15 06:44] LABS: POINT-OF-CARE METER ID UU14162508
[2017-01-15 08:00] VITALS: BP 147/86
[2017-01-15 10:16] LABS: POINT-OF-CARE METER ID UU14162508; POINT-OF-CARE USER ID PUTDRM
[2017-01-15 10:16] LABS: POINT-OF-CARE METER ID UU14162508
[2017-01-15 11:50] VITALS: BP 152/76
[2017-01-15 11:59] LABS: POINT-OF-CARE METER ID UU14162508
[2017-01-15 16:21] VITALS: BP 180/82
[2017-01-15 18:12] LABS: GLUCOSE 470 mg/dL (70-99)
[2017-01-15 19:50] VITALS: BP 139/76
[2017-01-15 21:43] LABS: POINT-OF-CARE METER ID UU14162508
[2017-01-15 23:38] VITALS: BP 136/66
[2017-01-16 03:48] VITALS: BP 140/70
[2017-01-16 06:37] LABS: POINT-OF-CARE METER ID UU14162508
[2017-01-16 07:55] VITALS: BP 173/84
[2017-01-16 11:50] VITALS: BP 183/86
[2017-01-16 16:43] LABS: POINT-OF-CARE METER ID UU14162508
[2017-01-16 16:45] VITALS: BP 185/90
[2017-01-16 19:26] VITALS: BP 178/80
[2017-01-16 22:07] LABS: IMMUNOGLOBULIN A 82 MG/DL (40-350); IMMUNOGLOBULIN G 705 MG/DL (650-1600); IMMUNOGLOBULIN M 148 MG/DL (50-300)
[2017-01-16 23:58] VITALS: BP 177/61
[2017-01-17 03:00] VITALS: BP 177/81
[2017-01-17 07:30] VITALS: BP 193/88
[2017-01-17 07:34] LABS: POINT-OF-CARE METER ID UU14162508
[2017-01-17 07:51] LABS: EOSINOPHIL (%) 0.1 % (0-5); HEMATOCRIT 31.9 % (36.0-46.0); IMMATURE GRANULOCYTE COUNT 0.4 K/uL; INSTRUMENT ABS NEUTROPHIL CT 5.8 K/uL; LYMPHOCYTE COUNT 1.3 K/uL (1.0-2.8); MCH 27.9 PG (29.0-34.0); MCV 87.2 FL (83-99); MEAN PLAT.VOLUME 10.3 uM^3 (9.5-12.4); MONOCYTE (%) 3.6 % (3-12); MONOCYTE COUNT 0.3 K/uL (0-0.8); NEUTROPHIL (%) 74.6 % (45-76); NEUTROPHIL COUNT 5.8 K/uL (1.8-6.4); NRBC (%) 0.3 /100 WBC (0-0); PLATELET COUNT 108 K/uL (156-360); RBC DIS.WIDTH-CV 13.4 % (11.8-14.6); RBC DIS.WIDTH-SD 42.2 % (39-53); RED BLOOD COUNT 3.66 M/uL (3.80-5.20); WHITE BLOOD COUNT 7.7 K/uL (4.1-10.2)
[2017-01-17 08:16] LABS: ANION GAP 9 MEQ/L (2-14); CHLORIDE 103 MEQ/L (99-109); GFR ESTIMATE (CALCULATED) > 59 mL/min/; GLUCOSE 209 mg/dL (70-99); SAMPLE HEMOLYSIS CHECK 0; SAMPLE ICTERIC CHECK 0; SAMPLE LIPEMIA CHECK 0; SODIUM 141 MEQ/L (136-147); UREA NITROGEN (BUN) 15 mg/dL (9-23)
[2017-01-17 08:17] LABS: POTASSIUM 3.6 MEQ/L (3.7-5.4)
[2017-01-17] MEDS ORDERED: AMOX TR-K CLV1 EAC4 PO (10:46)
[2017-01-17 10:47] VITALS: BP 189/86
[2017-01-17] MEDS ORDERED: PREDNISONE5 MG PO (10:49)
[2017-01-17 11:30] LABS: POINT-OF-CARE METER ID UU14162508
[2017-01-17 12:40] VITALS: BP 167/77
[2017-01-17] MEDS ORDERED: LEVAQUIN750 MG PO (12:46)
[2017-01-18 22:00] LABS: POINT-OF-CARE METER ID UU14162508
== END 2017-01-17 13:28 | disposition home health service (06) | DRG 871 ==
LOC: EME → EDBD 22:17 → EME 22:17 → EDOF 01-13 03:26 → 2EAST 01-13 03:26
PROVIDERS: Emergency Medicine; Hospitalist; Internal Medicine
DX: A41.9 Sepsis, unspecified organism (principal); J44.0 Chronic obstructive pulmonary disease with (acute) lower respiratory infection; J18.9 Pneumonia, unspecified organism; J44.1 Chronic obstructive pulmonary disease with (acute) exacerbation; J96.11 Chronic respiratory failure with hypoxia; D64.9 Anemia, unspecified; D69.3 Immune thrombocytopenic purpura; E03.9 Hypothyroidism, unspecified; E11.22 Type 2 diabetes mellitus with diabetic chronic kidney disease; I12.9 Hypertensive chronic kidney disease with stage 1 through stage 4 chronic kidney disease, or unspecified chronic kidney disease; N18.9 Chronic kidney disease, unspecified; E78.5 Hyperlipidemia, unspecified; G40.909 Epilepsy, unspecified, not intractable, without status epilepticus; G47.33 Obstructive sleep apnea (adult) (pediatric); G89.4 Chronic pain syndrome; E66.01 Morbid (severe) obesity due to excess calories; N39.0 Urinary tract infection, site not specified; E11.65 Type 2 diabetes mellitus with hyperglycemia; T38.0X5A Adverse effect of glucocorticoids and synthetic analogues, initial encounter; Y95 Nosocomial condition; Z68.31 Body mass index [BMI] 31.0-31.9, adult; Z87.891 Personal history of nicotine dependence; Z91.19 Patient's noncompliance with other medical treatment and regimen; Z79.891 Long term (current) use of opiate analgesic
CPT/HCPCS: 36600; 70450; 71010; 71020; 71250; 74230; 80048; 80053; 80202; 81003; 82565; 82784 90; 82803; 82948; 83605; 84484; 84999; 85025; 87040; 87070; 87086; 87106; 87205; 87449; 87641; 92610 GN; 92611 GN; 93005; 93971; 94010; 94640; 94640 76; 94660; 94760; 94799; 99202; 99281; 99285; J0360; J0456; J0692; J1100; J1644; J1815; J1956; J2020; J2543; J3370; J7030; J7050; J7512

== ENCOUNTER 2017-01-30 21:03 | Inpatient (IN) | payer OTHER ==
[~2017-01-30] VITALS: Ht 165.1 cm; Wt 90.7 kg
[~2017-01-30 21:03] MED LIST changes: +AMOX TR-K CLV1 EAC4 PO; +LEVAQUIN750 MG PO; +LIPITOR20 MG PO
[2017-01-30 21:34] LABS: POINT-OF-CARE METER ID UU13113702; POINT-OF-CARE USER ID 611181311
[2017-01-30 21:45] LABS: BASE EXCESS 0.5 mEq/L (-3 to +3); BICARBONATE 27.3 mEq/L (22-26); CARBOXY HGB 2.2 % (0-5); METHEMOGLOBIN 1.2 % (0-1.5); pH 7.32 (7.35-7.45)
[2017-01-30 21:45] LABS: EOSINOPHIL COUNT 0.2 K/uL (0-0.3); HEMATOCRIT 37.5 % (36.0-46.0); IMMATURE GRANULOCYTE (%) 0.4 % (0.0-0.7); INSTRUMENT ABS NEUTROPHIL CT 5.1 K/uL; MCH 27.7 PG (29.0-34.0); MCHC 31.2 G/DL (30.0-36.0); MCV 88.7 FL (83-99); MEAN PLAT.VOLUME 10.7 uM^3 (9.5-12.4); MONOCYTE (%) 8.3 % (3-12); MONOCYTE COUNT 0.7 K/uL (0-0.8); NEUTROPHIL (%) 64.3 % (45-76); NEUTROPHIL COUNT 5.1 K/uL (1.8-6.4); PLATELET COUNT 135 K/uL (156-360); RBC DIS.WIDTH-CV 14.2 % (11.8-14.6); RBC DIS.WIDTH-SD 45.8 % (39-53); RED BLOOD COUNT 4.23 M/uL (3.80-5.20); WHITE BLOOD COUNT 7.9 K/uL (4.1-10.2)
[2017-01-30 21:46] LABS: COMMENTS - BLOOD GASES C+; DEVICE NC; O2 FLOW 3 L/MIN; PCO2 53 mm Hg (35-45); PO2 79 mm Hg (80-100); SITE RR; TOTAL RESP RATE 12 resp/min
[2017-01-30 22:06] LABS: TROP-I INTERPRETATION NEGATIVE; TROPONIN-I < 0.01 ng/mL (0.0-0.30)
[2017-01-30 22:17] LABS: ADD MIUA? YES; BILIRUBIN NEGATIVE; BLOOD NEGATIVE; COLOR AMBER ((YELLOW)); GLUCOSE (STRIP) >=500; KETONES 5; LEUKOCYTES LARGE; NITRITE NEGATIVE; PROTEIN (STRIP) 100; SPECIFIC GRAVITY 1.014 (1.000-1.030); UROBILINOGEN 0.2 MG/DL (0.2-1.0)
[2017-01-30 23:05] LABS: RED BLOOD CELLS TNTC /HPF (0-5); WHITE BLOOD CELLS TNTC /HPF (0-5)
[2017-01-30 23:06] LABS: BACTERIA 1+ /HPF; CASTS PRESENT /LPF; EPITHELIAL CELLS 1+ /HPF; HYALINE CASTS 0-5 /LPF; MUCUS NONE SEEN /LPF; UCUL ADDED? YES
[2017-01-31 05:00] VITALS: BP 96/58
[2017-01-31 05:18] LABS: CHLORIDE 111 mEq/L (99-109); POTASSIUM 4.4 mEq/L (3.7-5.4); SODIUM 141 mEq/L (136-147)
[2017-01-31 05:20] LABS: GLUCOSE 302 mg/dL (70-99)
[2017-01-31 05:21] LABS: ANION GAP 6 MEQ/L (2-14)
[2017-01-31 05:22] LABS: TOTAL BILIRUBIN 0.3 mg/dL (0.0-1.0)
[2017-01-31 05:23] LABS: ALKALINE PHOSPHATASE 201 IU/L (3-129)
[2017-01-31 05:24] LABS: GFR ESTIMATE (CALCULATED) 44 mL/min/
[2017-01-31 05:25] LABS: UREA NITROGEN (BUN) 18 mg/dL (9-23)
[2017-01-31 07:47] LABS: EOSINOPHIL (%) 1.8 % (0-5); EOSINOPHIL COUNT 0.1 K/uL (0-0.3); IMMATURE GRANULOCYTE (%) 0.2 % (0.0-0.7); INSTRUMENT ABS NEUTROPHIL CT 3.2 K/uL; LYMPHOCYTE COUNT 1.3 K/uL (1.0-2.8); MCH 28.3 PG (29.0-34.0); MCHC 31.3 G/DL (30.0-36.0); MCV 90.4 FL (83-99); MONOCYTE (%) 7.8 % (3-12); MONOCYTE COUNT 0.4 K/uL (0-0.8); NEUTROPHIL (%) 63.7 % (45-76); NEUTROPHIL COUNT 3.2 K/uL (1.8-6.4); RBC DIS.WIDTH-CV 14.2 % (11.8-14.6); RBC DIS.WIDTH-SD 46.8 % (39-53)
[2017-01-31 07:48] LABS: RED BLOOD COUNT 3.32 M/uL (3.80-5.20)
[2017-01-31 07:55] LABS: ALKALINE PHOSPHATASE 187 IU/L (3-129); ANION GAP 5 MEQ/L (2-14); CHLORIDE 107 MEQ/L (99-109); GFR ESTIMATE (CALCULATED) > 59 mL/min/; GLUCOSE 271 mg/dL (70-99); POTASSIUM 4.3 MEQ/L (3.7-5.4); SAMPLE HEMOLYSIS CHECK 0; SAMPLE ICTERIC CHECK 0; SAMPLE LIPEMIA CHECK 0; SODIUM 136 MEQ/L (136-147); TOTAL BILIRUBIN 0.4 MG/DL (0.0-1.0); UREA NITROGEN (BUN) 17 mg/dL (9-23)
[2017-01-31 08:38] LABS: MEAN PLAT.VOLUME 11.6 uM^3 (9.5-12.4); PLAT.SUFFICIENCY DECREASED
[2017-01-31 08:53] LABS: PLATELET COUNT 88 K/uL (156-360)
[2017-01-31 11:41] LABS: INTERNAL CONTROL VALID? YES
[2017-01-31] MEDS ORDERED: NORVASC10 MG PO (18:59)
[2017-01-31 19:05] LABS: ADD MIUA? YES; BILIRUBIN NEGATIVE; BLOOD NEGATIVE; COLOR YELLOW ((YELLOW)); GLUCOSE (STRIP) >=500; KETONES NEGATIVE; LEUKOCYTES LARGE; NITRITE NEGATIVE; PROTEIN (STRIP) NEGATIVE; SPECIFIC GRAVITY 1.014 (1.000-1.030); UROBILINOGEN 0.2 MG/DL (0.2-1.0)
[2017-01-31] MEDS ORDERED: PREDNISONE10 MG PO (19:06)
[2017-01-31 19:20] VITALS: BP 163/74
[2017-01-31 19:42] LABS: CASTS NONE SEEN /LPF; EPITHELIAL CELLS 1+ /HPF; MUCUS NONE SEEN /LPF
[2017-01-31 19:43] LABS: BACTERIA NONE SEEN /HPF; RED BLOOD CELLS NONE SEEN /HPF (0-5); WHITE BLOOD CELLS 40-50 /HPF (0-5)
[2017-01-31 23:33] VITALS: BP 144/69
[2017-02-01] VITALS (7 sets, daily range): BP systolic 104–194; BP diastolic 51–119
[2017-02-01 11:03] LABS: GFR ESTIMATE (CALCULATED) > 59 mL/min/
[2017-02-02 04:13] VITALS: BP 93/51
[2017-02-02 04:54] LABS: BASE EXCESS 1.1 mEq/L (-3 to +3); BICARBONATE 26.6 mEq/L (22-26); CARBOXY HGB 2.6 % (0-5); METHEMOGLOBIN 1.6 % (0-1.5); pH 7.37 (7.35-7.45)
[2017-02-02 04:55] LABS: PCO2 46 mm Hg (35-45)
[2017-02-02 04:56] LABS: FI02 21 %; PO2 59 mm Hg (80-100); SITE RR
[2017-02-02 05:20] VITALS: BP 139/60
[2017-02-02 07:35] VITALS: BP 139/68
[2017-02-02 07:46] LABS: HEMATOCRIT 26.8 % (36.0-46.0); MCH 27.7 PG (29.0-34.0); MCHC 32.1 G/DL (30.0-36.0); RBC DIS.WIDTH-CV 14.2 % (11.8-14.6); RBC DIS.WIDTH-SD 44.5 % (39-53); RED BLOOD COUNT 3.11 M/uL (3.80-5.20); WHITE BLOOD COUNT 4.3 K/uL (4.1-10.2)
[2017-02-02 07:47] LABS: MCV 86.2 FL (83-99)
[2017-02-02 08:07] LABS: ANION GAP 6 MEQ/L (2-14); CHLORIDE 108 MEQ/L (99-109); GFR ESTIMATE (CALCULATED) > 59 mL/min/; GLUCOSE 263 mg/dL (70-99); POTASSIUM 3.7 MEQ/L (3.7-5.4); SAMPLE HEMOLYSIS CHECK 0; SAMPLE ICTERIC CHECK 0; SAMPLE LIPEMIA CHECK 0; SODIUM 141 MEQ/L (136-147); UREA NITROGEN (BUN) 10 mg/dL (9-23)
[2017-02-02 08:44] LABS: MEAN PLAT.VOLUME 9.9 uM^3 (9.5-12.4)
[2017-02-02 08:59] LABS: PLATELET COUNT 60 K/uL (156-360)
[2017-02-02 12:01] VITALS: BP 131/65
[2017-02-02 15:40] VITALS: BP 120/58
[2017-02-02 23:44] VITALS: BP 133/73
[2017-02-03 08:40] VITALS: BP 141/73
[2017-02-03 09:36] LABS: HEMATOCRIT 28.6 % (36.0-46.0); MCH 28.3 PG (29.0-34.0); MCHC 32.5 G/DL (30.0-36.0); MCV 86.9 FL (83-99); MEAN PLAT.VOLUME 10.7 uM^3 (9.5-12.4); PLATELET COUNT 72 K/uL (156-360); RBC DIS.WIDTH-CV 14.2 % (11.8-14.6); RED BLOOD COUNT 3.29 M/uL (3.80-5.20); WHITE BLOOD COUNT 4.4 K/uL (4.1-10.2)
[2017-02-03 10:13] LABS: ANION GAP 10 MEQ/L (2-14); CHLORIDE 106 MEQ/L (99-109); POTASSIUM 3.7 MEQ/L (3.7-5.4); SAMPLE HEMOLYSIS CHECK 0; SAMPLE ICTERIC CHECK 0; SAMPLE LIPEMIA CHECK 0; SODIUM 140 MEQ/L (136-147)
[2017-02-03 10:18] LABS: GFR ESTIMATE (CALCULATED) > 59 mL/min/; GLUCOSE 288 mg/dL (70-99); UREA NITROGEN (BUN) 8 mg/dL (9-23)
[2017-02-03 12:17] LABS: POINT-OF-CARE METER ID UU14208750
[2017-02-03 15:47] VITALS: BP 163/81
[2017-02-03 16:34] LABS: POINT-OF-CARE METER ID UU14208750
[2017-02-03 21:35] LABS: POINT-OF-CARE METER ID UU14208750
[2017-02-03 23:15] VITALS: BP 139/66
[2017-02-04 08:50] VITALS: BP 155/72
[2017-02-04 10:48] LABS: HEMATOCRIT 29.4 % (36.0-46.0); MCV 87.5 FL (83-99); MEAN PLAT.VOLUME 11.2 uM^3 (9.5-12.4); PLATELET COUNT 66 K/uL (156-360); RBC DIS.WIDTH-CV 14.4 % (11.8-14.6); RBC DIS.WIDTH-SD 45.4 % (39-53); RED BLOOD COUNT 3.36 M/uL (3.80-5.20); WHITE BLOOD COUNT 4.6 K/uL (4.1-10.2)
[2017-02-04 11:17] LABS: ANION GAP 10 MEQ/L (2-14); CHLORIDE 107 MEQ/L (99-109); GFR ESTIMATE (CALCULATED) > 59 mL/min/; GLUCOSE 235 mg/dL (70-99); POTASSIUM 3.5 MEQ/L (3.7-5.4); SAMPLE HEMOLYSIS CHECK 0; SAMPLE ICTERIC CHECK 0; SAMPLE LIPEMIA CHECK 0; SODIUM 143 MEQ/L (136-147); UREA NITROGEN (BUN) 7 mg/dL (9-23)
[2017-02-04 12:34] VITALS: BP 180/72
[2017-02-04 17:47] VITALS: BP 131/72
[2017-02-04 23:06] VITALS: BP 161/76
[2017-02-05 06:43] LABS: HEMATOCRIT 28.2 % (36.0-46.0); MCH 28.2 PG (29.0-34.0); MCHC 32.6 G/DL (30.0-36.0); MCV 86.5 FL (83-99); MEAN PLAT.VOLUME 11.5 uM^3 (9.5-12.4); PLATELET COUNT 81 K/uL (156-360); RBC DIS.WIDTH-CV 14.4 % (11.8-14.6); RBC DIS.WIDTH-SD 44.8 % (39-53); RED BLOOD COUNT 3.26 M/uL (3.80-5.20); WHITE BLOOD COUNT 5.1 K/uL (4.1-10.2)
[2017-02-05 06:47] LABS: POINT-OF-CARE METER ID UU14208750
[2017-02-05 07:06] LABS: ANION GAP 8 MEQ/L (2-14); CHLORIDE 106 MEQ/L (99-109); GFR ESTIMATE (CALCULATED) > 59 mL/min/; GLUCOSE 239 mg/dL (70-99); POTASSIUM 3.6 MEQ/L (3.7-5.4); SAMPLE HEMOLYSIS CHECK 0; SAMPLE ICTERIC CHECK 0; SAMPLE LIPEMIA CHECK 0; SODIUM 142 MEQ/L (136-147); UREA NITROGEN (BUN) 8 mg/dL (9-23)
[2017-02-05 07:45] VITALS: BP 167/80
[2017-02-05] MEDS ORDERED: SPIRIVA RESPIMAT4 GM IH (11:16)
[2017-02-05] MEDS ORDERED: ADVAIR HFA120 INHALA IH (11:18)
[2017-02-05] MEDS ORDERED: METFORMIN HCL500 MG PO (11:19)
[2017-02-05] MEDS ORDERED: LEVEMIR100 UNIT/2 SC (11:19)
[2017-02-05] MEDS ORDERED: MORPHINE SULFAT15 M1 PO (11:24)
[2017-02-05 11:46] LABS: POINT-OF-CARE METER ID UU14208750
== END 2017-02-05 12:46 | disposition home health service (06) | DRG 637 ==
LOC: EME 21:03 → EDOF 01-31 04:16 → 4EAST 01-31 04:16 → 2EASTP 01-31 04:16 → 4EAST 01-31 05:05 → 2EASTP 02-01 15:59
PROVIDERS: Emergency Medicine; Hospitalist; Internal Medicine; Physician Assistant
PROC: 05HM33Z Insertion of Infusion Device into Right Internal Jugular Vein, Percutaneous Approach (ICD-10-PCS; principal; 2017-01-31)
DX: E11.65 Type 2 diabetes mellitus with hyperglycemia (principal); G93.40 Encephalopathy, unspecified; E87.2 Acidosis; F11.20 Opioid dependence, uncomplicated; D69.3 Immune thrombocytopenic purpura; B37.49 Other urogenital candidiasis; N30.01 Acute cystitis with hematuria; E03.9 Hypothyroidism, unspecified; E66.9 Obesity, unspecified; R09.02 Hypoxemia; I95.9 Hypotension, unspecified; I10 Essential (primary) hypertension; G89.4 Chronic pain syndrome; E78.5 Hyperlipidemia, unspecified; D64.9 Anemia, unspecified; G43.909 Migraine, unspecified, not intractable, without status migrainosus; G40.909 Epilepsy, unspecified, not intractable, without status epilepticus; J44.9 Chronic obstructive pulmonary disease, unspecified; Z79.84 Long term (current) use of oral hypoglycemic drugs; Z68.33 Body mass index [BMI] 33.0-33.9, adult; Z79.4 Long term (current) use of insulin; Z88.5 Allergy status to narcotic agent; Z90.49 Acquired absence of other specified parts of digestive tract; Z87.01 Personal history of pneumonia (recurrent)
CPT/HCPCS: 36600; 70450; 71010; 80048; 80053; 80202; 81003; 82565; 82803; 82948; 83605; 83880; 84484; 85025; 85027; 87040; 87070; 87086; 87106; 87205; 87449; 92610 GN; 93005; 94640; 94640 76; 94799; 97530 GP; 99202; 99281; 99285; J0360; J0456; J0692; J1644; J1815; J2310; J2405; J3370; J7030; J7050; S0028

== ENCOUNTER 2017-02-15 16:06 | Inpatient (IN) | payer OTHER ==
[~2017-02-15] VITALS: Ht 162.6 cm; Wt 64.0 kg
[~2017-02-15 16:06] MED LIST changes: +MORPHINE SULFAT15 M1 PO; +NORVASC10 MG PO
[2017-02-15 16:34] LABS: CHLORIDE 99 mEq/L (99-109); POTASSIUM 4.7 mEq/L (3.7-5.4); SODIUM 131 mEq/L (136-147)
[2017-02-15 16:35] LABS: HEMATOCRIT 33.1 % (36.0-46.0); MCH 26.5 PG (29.0-34.0); MCHC 31.4 G/DL (30.0-36.0); MCV 84.4 FL (83-99); MEAN PLAT.VOLUME 9.7 uM^3 (9.5-12.4); PLATELET COUNT 203 K/uL (156-360); RBC DIS.WIDTH-CV 13.9 % (11.8-14.6); RBC DIS.WIDTH-SD 43.2 % (39-53); RED BLOOD COUNT 3.92 M/uL (3.80-5.20); WHITE BLOOD COUNT 8.5 K/uL (4.1-10.2)
[2017-02-15 16:37] LABS: ANION GAP 9 MEQ/L (2-14)
[2017-02-15 16:40] LABS: GFR ESTIMATE (CALCULATED) 44 mL/min/
[2017-02-15 16:41] LABS: UREA NITROGEN (BUN) 27 mg/dL (9-23)
[2017-02-15 16:57] LABS: GLUCOSE 446 mg/dL (70-99)
[2017-02-15 18:18] LABS: ADD MIUA? YES; BILIRUBIN NEGATIVE; BLOOD NEGATIVE; COLOR YELLOW ((YELLOW)); GLUCOSE (STRIP) >=500; KETONES NEGATIVE; LEUKOCYTES NEGATIVE; NITRITE NEGATIVE; PROTEIN (STRIP) 30; SPECIFIC GRAVITY 1.014 (1.000-1.030); UROBILINOGEN 0.2 MG/DL (0.2-1.0)
[2017-02-15 18:25] LABS: BACTERIA NONE SEEN /HPF; BUDDING YEAST 3+; EPITHELIAL CELLS RARE /HPF; HYALINE CASTS 0-5 /LPF; MUCUS TRACE /LPF; UCUL ADDED? NO; WHITE BLOOD CELLS 0-5 /HPF (0-5)
[2017-02-15 18:29] LABS: POINT-OF-CARE METER ID UU14100415
[2017-02-15] MEDS ORDERED: ATORVASTATIN CA20 MG PO (19:36)
[2017-02-15 23:33] LABS: POINT-OF-CARE METER ID UU14100415
[2017-02-16 00:46] VITALS: BP 117/65
[2017-02-16 04:48] VITALS: BP 156/66
[2017-02-16 07:07] LABS: EOSINOPHIL (%) 4.4 % (0-5); EOSINOPHIL COUNT 0.3 K/uL (0-0.3); HEMATOCRIT 28.9 % (36.0-46.0); IMMATURE GRANULOCYTE (%) 0.7 % (0.0-0.7); INSTRUMENT ABS NEUTROPHIL CT 4.5 K/uL; LYMPHOCYTE COUNT 0.8 K/uL (1.0-2.8); MCH 26.8 PG (29.0-34.0); MCHC 31.5 G/DL (30.0-36.0); MEAN PLAT.VOLUME 10.4 uM^3 (9.5-12.4); MONOCYTE (%) 5.2 % (3-12); MONOCYTE COUNT 0.3 K/uL (0-0.8); NEUTROPHIL (%) 75.9 % (45-76); NEUTROPHIL COUNT 4.5 K/uL (1.8-6.4); PLATELET COUNT 163 K/uL (156-360); RBC DIS.WIDTH-CV 13.9 % (11.8-14.6); RBC DIS.WIDTH-SD 43.3 % (39-53); WHITE BLOOD COUNT 5.9 K/uL (4.1-10.2)
[2017-02-16 07:30] LABS: ANION GAP 12 MEQ/L (2-14); CHLORIDE 102 MEQ/L (99-109); GLUCOSE 273 mg/dL (70-99); POTASSIUM 4.5 MEQ/L (3.7-5.4); SAMPLE HEMOLYSIS CHECK 0; SAMPLE ICTERIC CHECK 0; SAMPLE LIPEMIA CHECK 0; SODIUM 136 MEQ/L (136-147); UREA NITROGEN (BUN) 19 mg/dL (9-23)
[2017-02-16 07:36] LABS: GFR ESTIMATE (CALCULATED) > 59 mL/min/
[2017-02-16 08:35] VITALS: BP 120/56
[2017-02-16 09:17] LABS: INTERNAL CONTROL VALID? YES
[2017-02-16 11:51] LABS: POINT-OF-CARE METER ID UU14208750
[2017-02-16 20:54] VITALS: BP 161/70
[2017-02-16 21:38] LABS: POINT-OF-CARE METER ID UU14208750
[2017-02-16 23:54] VITALS: BP 148/67
[2017-02-17 06:36] LABS: POINT-OF-CARE METER ID UU14208750
[2017-02-17 07:09] LABS: EOSINOPHIL (%) 3.5 % (0-5); EOSINOPHIL COUNT 0.2 K/uL (0-0.3); HEMATOCRIT 29.6 % (36.0-46.0); IMMATURE GRANULOCYTE (%) 0.2 % (0.0-0.7); MCH 26.6 PG (29.0-34.0); MCHC 32.1 G/DL (30.0-36.0); MCV 82.9 FL (83-99); MONOCYTE (%) 4.6 % (3-12); MONOCYTE COUNT 0.3 K/uL (0-0.8); NEUTROPHIL (%) 73.1 % (45-76); PLATELET COUNT 174 K/uL (156-360); RBC DIS.WIDTH-CV 13.4 % (11.8-14.6); RBC DIS.WIDTH-SD 40.5 % (39-53); RED BLOOD COUNT 3.57 M/uL (3.80-5.20); WHITE BLOOD COUNT 5.5 K/uL (4.1-10.2)
[2017-02-17 07:31] LABS: ANION GAP 10 MEQ/L (2-14); CHLORIDE 102 MEQ/L (99-109); GFR ESTIMATE (CALCULATED) > 59 mL/min/; GLUCOSE 220 mg/dL (70-99); MAGNESIUM 1.4 mg/dl (1.3-2.7); POTASSIUM 3.9 MEQ/L (3.7-5.4); SAMPLE HEMOLYSIS CHECK 0; SAMPLE ICTERIC CHECK 0; SAMPLE LIPEMIA CHECK 0; SODIUM 141 MEQ/L (136-147); UREA NITROGEN (BUN) 10 mg/dL (9-23)
[2017-02-17 07:50] VITALS: BP 173/79
[2017-02-17 08:51] LABS: INTER. NORMALIZED RATIO 1.3; PROTHROMBIN TIME 14.3 SEC (10.2-12.9)
[2017-02-17 08:52] LABS: PTT 25.4 SEC (25-37)
[2017-02-17 11:46] LABS: POINT-OF-CARE METER ID UU14208750
[2017-02-17 16:49] LABS: POINT-OF-CARE METER ID UU14208750
[2017-02-17 20:00] VITALS: BP 141/71
[2017-02-17 23:10] VITALS: BP 167/75
[2017-02-17 23:26] LABS: POINT-OF-CARE METER ID UU14208750
[2017-02-18 06:39] LABS: POINT-OF-CARE METER ID UU14208750
[2017-02-18 07:00] LABS: EOSINOPHIL (%) 2.5 % (0-5); EOSINOPHIL COUNT 0.1 K/uL (0-0.3); HEMATOCRIT 28.7 % (36.0-46.0); IMMATURE GRANULOCYTE (%) 0.5 % (0.0-0.7); INSTRUMENT ABS NEUTROPHIL CT 2.9 K/uL; LYMPHOCYTE COUNT 1.1 K/uL (1.0-2.8); MCH 27.2 PG (29.0-34.0); MCHC 32.4 G/DL (30.0-36.0); MCV 83.9 FL (83-99); MONOCYTE (%) 5.1 % (3-12); MONOCYTE COUNT 0.2 K/uL (0-0.8); NEUTROPHIL (%) 66.6 % (45-76); NEUTROPHIL COUNT 2.9 K/uL (1.8-6.4); RBC DIS.WIDTH-CV 13.8 % (11.8-14.6); RBC DIS.WIDTH-SD 42.2 % (39-53); RED BLOOD COUNT 3.42 M/uL (3.80-5.20); WHITE BLOOD COUNT 4.3 K/uL (4.1-10.2)
[2017-02-18 07:23] LABS: ANION GAP 8 MEQ/L (2-14); CHLORIDE 103 MEQ/L (99-109); GFR ESTIMATE (CALCULATED) > 59 mL/min/; GLUCOSE 260 mg/dL (70-99); POTASSIUM 4.1 MEQ/L (3.7-5.4); SAMPLE HEMOLYSIS CHECK 0; SAMPLE ICTERIC CHECK 0; SAMPLE LIPEMIA CHECK 0; SODIUM 140 MEQ/L (136-147); UREA NITROGEN (BUN) 9 mg/dL (9-23)
[2017-02-18 08:01] LABS: HEMATOLOGY COMMENT 1 SMEAR COMPATIBLE; MEAN PLAT.VOLUME 10.2 uM^3 (9.5-12.4); PLAT.SUFFICIENCY ADEQUATE; PLATELET COUNT 164 K/uL (156-360)
[2017-02-18 08:35] VITALS: BP 145/84
[2017-02-18 11:15] VITALS: BP 166/88
[2017-02-18 14:50] VITALS: BP 147/72
[2017-02-18 15:19] LABS: POINT-OF-CARE METER ID UU14174212
[2017-02-18 20:22] VITALS: BP 139/69
[2017-02-18 23:47] VITALS: BP 151/69
[2017-02-19 03:59] VITALS: BP 160/72
[2017-02-19 06:29] LABS: EOSINOPHIL (%) 2.3 % (0-5); EOSINOPHIL COUNT 0.1 K/uL (0-0.3); HEMATOCRIT 29.8 % (36.0-46.0); IMMATURE GRANULOCYTE (%) 0.6 % (0.0-0.7); INSTRUMENT ABS NEUTROPHIL CT 3.4 K/uL; LYMPHOCYTE COUNT 1.3 K/uL (1.0-2.8); MCH 26.9 PG (29.0-34.0); MCHC 32.2 G/DL (30.0-36.0); MCV 83.5 FL (83-99); MEAN PLAT.VOLUME 9.8 uM^3 (9.5-12.4); MONOCYTE (%) 5.5 % (3-12); MONOCYTE COUNT 0.3 K/uL (0-0.8); NEUTROPHIL (%) 66.4 % (45-76); NEUTROPHIL COUNT 3.4 K/uL (1.8-6.4); PLATELET COUNT 172 K/uL (156-360); RBC DIS.WIDTH-CV 13.7 % (11.8-14.6); RBC DIS.WIDTH-SD 41.9 % (39-53); RED BLOOD COUNT 3.57 M/uL (3.80-5.20); WHITE BLOOD COUNT 5.1 K/uL (4.1-10.2)
[2017-02-19 06:53] LABS: ALKALINE PHOSPHATASE 127 IU/L (3-129); ANION GAP 8 MEQ/L (2-14); CHLORIDE 103 MEQ/L (99-109); GFR ESTIMATE (CALCULATED) > 59 mL/min/; GLUCOSE 213 mg/dL (70-99); SAMPLE HEMOLYSIS CHECK 0; SAMPLE ICTERIC CHECK 0; SAMPLE LIPEMIA CHECK 0; SODIUM 141 MEQ/L (136-147); TOTAL BILIRUBIN 0.3 MG/DL (0.0-1.0); UREA NITROGEN (BUN) 11 mg/dL (9-23)
[2017-02-19 06:57] LABS: Estimated Average Glucose 266 mg/dL (70-123); HEMOGLOBIN A1c (GLYCOHEMOGLOB) 10.9 % HGB (Below 5.7)
[2017-02-19 07:30] VITALS: BP 185/91
[2017-02-19 11:24] LABS: ANTI-NUCLEAR AB SCRN/RFLX(ANA) REACTIVE (NONREACTIVE)
[2017-02-19 11:28] VITALS: BP 149/74
[2017-02-19 11:29] LABS: JO-1 ANTIBODY 5 U/mL (0-99); SCL-70 (SCLERODERMA) ANTIBODY 4 U/mL (0-99); SM (SMITH) ANTIBODY 10 U/mL (0-99); SS-A (SJOGREN'S) ANTIBODY 125 U/mL (0-99); SS-B (SJOGREN'S) ANTIBODY 4 U/mL (0-99)
[2017-02-19 11:30] LABS: CENTROMERE ANTIBODY 3 U/mL (0-99); HISTONE ANTIBODY 7 U/mL (0-99)
[2017-02-19 15:26] VITALS: BP 128/79
[2017-02-19 19:45] VITALS: BP 174/88
[2017-02-19 23:48] VITALS: BP 159/75
[2017-02-20 04:39] VITALS: BP 127/68
[2017-02-20 05:39] LABS: EOSINOPHIL (%) 2.5 % (0-5); EOSINOPHIL COUNT 0.1 K/uL (0-0.3); HEMATOCRIT 31.9 % (36.0-46.0); IMMATURE GRANULOCYTE COUNT 0.1 K/uL; INSTRUMENT ABS NEUTROPHIL CT 3.5 K/uL; LYMPHOCYTE COUNT 1.1 K/uL (1.0-2.8); MCH 26.2 PG (29.0-34.0); MCHC 31.3 G/DL (30.0-36.0); MCV 83.5 FL (83-99); MEAN PLAT.VOLUME 9.8 uM^3 (9.5-12.4); MONOCYTE (%) 5.5 % (3-12); MONOCYTE COUNT 0.3 K/uL (0-0.8); NEUTROPHIL (%) 68.7 % (45-76); NEUTROPHIL COUNT 3.5 K/uL (1.8-6.4); PLATELET COUNT 175 K/uL (156-360); RBC DIS.WIDTH-CV 13.7 % (11.8-14.6); RBC DIS.WIDTH-SD 41.3 % (39-53); RED BLOOD COUNT 3.82 M/uL (3.80-5.20); WHITE BLOOD COUNT 5.1 K/uL (4.1-10.2)
[2017-02-20 06:07] LABS: ANION GAP 8 MEQ/L (2-14); CHLORIDE 103 MEQ/L (99-109); GFR ESTIMATE (CALCULATED) > 59 mL/min/; GLUCOSE 208 mg/dL (70-99); POTASSIUM 3.8 MEQ/L (3.7-5.4); SAMPLE HEMOLYSIS CHECK 0; SAMPLE ICTERIC CHECK 0; SAMPLE LIPEMIA CHECK 0; SODIUM 138 MEQ/L (136-147); TOTAL BILIRUBIN 0.3 MG/DL (0.0-1.0); UREA NITROGEN (BUN) 13 mg/dL (9-23)
[2017-02-20 06:16] LABS: ALKALINE PHOSPHATASE 184 IU/L (3-129)
[2017-02-20 07:41] VITALS: BP 138/66
[2017-02-20] MEDS ORDERED: PREDNISONE10 MG PO (10:55)
[2017-02-20] MEDS ORDERED: AUGMENTIN875 MG PO (10:55)
[2017-02-20 11:56] LABS: POINT-OF-CARE USER ID PUTDRM
[2017-02-20 20:20] LABS: PROCALCITONIN+ <0.10 ng/mL (<0.10)
[2017-02-23 21:35] LABS: Neutrophil Cytoplasmic Aby Negative (Negative)
== END 2017-02-20 12:59 | disposition home health service (06) | DRG 166 ==
LOC: EME 16:06 → 2EAST 22:15 → EDOF 22:15 → 2EAST 23:26
PROVIDERS: Emergency Medicine; Hospitalist; Internal Medicine; Internal Medicine Pulmonary Disease
DX: J44.0 Chronic obstructive pulmonary disease with (acute) lower respiratory infection (principal); J18.9 Pneumonia, unspecified organism; J96.11 Chronic respiratory failure with hypoxia; Z99.81 Dependence on supplemental oxygen; E11.65 Type 2 diabetes mellitus with hyperglycemia; E86.0 Dehydration; N28.9 Disorder of kidney and ureter, unspecified; R60.0 Localized edema; G47.33 Obstructive sleep apnea (adult) (pediatric); I10 Essential (primary) hypertension; I25.10 Atherosclerotic heart disease of native coronary artery without angina pectoris; K21.9 Gastro-esophageal reflux disease without esophagitis; E78.5 Hyperlipidemia, unspecified; G40.909 Epilepsy, unspecified, not intractable, without status epilepticus; G89.4 Chronic pain syndrome; F41.8 Other specified anxiety disorders; E03.9 Hypothyroidism, unspecified; Y95 Nosocomial condition; Z91.19 Patient's noncompliance with other medical treatment and regimen; Z79.4 Long term (current) use of insulin; Z79.84 Long term (current) use of oral hypoglycemic drugs; Z87.01 Personal history of pneumonia (recurrent); Z87.891 Personal history of nicotine dependence; Z80.1 Family history of malignant neoplasm of trachea, bronchus and lung; Z82.49 Family history of ischemic heart disease and other diseases of the circulatory system; Z82.5 Family history of asthma and other chronic lower respiratory diseases
CPT/HCPCS: 71010; 71020; 71250; 76001; 80048; 80053; 81003; 82948; 83036; 83735; 84145 90; 85025; 85027; 85379; 85610; 85730; 86021 90; 86038; 86235; 87040; 87070; 87081; 87116; 87205; 87206; 87278; 87449; 88108; 88305; 93005; 93970; 94640; 94640 76; 94799; 99202; 99281; 99285; J0461; J0692; J1644; J1815; J1956; J2175; J2250; J2310; J2550; J3010; J3370; J3475; J7030; J7050; J7512

== ENCOUNTER 2017-05-24 21:21 | Inpatient (IN) | payer OTHER ==
[~2017-05-24] VITALS: Ht 170.2 cm; Wt 93.7 kg
[~2017-05-24 21:21] MED LIST changes: +ATORVASTATIN CA20 MG PO
[2017-05-24 23:00] LABS: HEMATOCRIT 31.7 % (36.0-46.0); MCH 27.6 PG (29.0-34.0); MCHC 31.9 G/DL (30.0-36.0); MCV 86.6 FL (83-99); MEAN PLAT.VOLUME 11.9 uM^3 (9.5-12.4); PLATELET COUNT 55 K/uL (156-360); RBC DIS.WIDTH-CV 13.6 % (11.8-14.6); RBC DIS.WIDTH-SD 42.7 % (39-53); RED BLOOD COUNT 3.66 M/uL (3.80-5.20); WHITE BLOOD COUNT 5.7 K/uL (4.1-10.2)
[2017-05-24 23:00] LABS: CARBON DIOXIDE (BICARBONATE) 27.5 MEQ/L (20-31)
[2017-05-24 23:11] LABS: CHLORIDE 98 mEq/L (99-109); SODIUM 132 mEq/L (136-147)
[2017-05-24 23:14] LABS: ANION GAP 11 MEQ/L (2-14)
[2017-05-24 23:16] LABS: GFR ESTIMATE (CALCULATED) 48 mL/min/
[2017-05-24 23:17] LABS: UREA NITROGEN (BUN) 21 mg/dL (9-23)
[2017-05-24 23:28] LABS: GLUCOSE 638 mg/dL (70-99)
[2017-05-25] VITALS (18 sets, daily range): BP systolic 92–139; BP diastolic 48–93
[2017-05-25 01:00] LABS: POINT-OF-CARE METER ID UU14100415
[2017-05-25 01:58] LABS: ADD MIUA? YES; BILIRUBIN NEGATIVE; BLOOD NEGATIVE; COLOR YELLOW ((YELLOW)); GLUCOSE (STRIP) >=500; KETONES NEGATIVE; LEUKOCYTES MODERATE; NITRITE NEGATIVE; PROTEIN (STRIP) NEGATIVE; SPECIFIC GRAVITY 1.026 (1.000-1.030); UROBILINOGEN 0.2 MG/DL (0.2-1.0)
[2017-05-25 02:25] LABS: EPITHELIAL CELLS RARE /HPF; MUCUS NONE SEEN /LPF; RED BLOOD CELLS NONE SEEN /HPF (0-5); WHITE BLOOD CELLS TNTC /HPF (0-5)
[2017-05-25 02:25] LABS: BASE EXCESS -0.2 mEq/L (-3 to +3); BICARBONATE 26.6 mEq/L (22-26); CARBOXY HGB 2.5 % (0-5); METHEMOGLOBIN 0.8 % (0-1.5); PCO2 54 mm Hg (35-45); PO2 100 mm Hg (80-100)
[2017-05-25 02:26] LABS: BACTERIA 1+ /HPF; CASTS NONE SEEN /LPF; CRYSTALS NONE SEEN; UCUL ADDED? YES
[2017-05-25 02:26] LABS: COMMENTS - BLOOD GASES C+; DEVICE NC; O2 FLOW 4 L/MIN; SITE RB
[2017-05-25] MEDS ORDERED: BACTRIM,SEPT1 TABLET PO (04:24)
[2017-05-25 05:21] LABS: POINT-OF-CARE METER ID UU14100415
[2017-05-25 08:59] LABS: METH RESISTANT S AUREUS PCR POSITIVE (NEGATIVE)
[2017-05-25 09:00] LABS: PROBE CHECK PASS
[2017-05-25 11:23] LABS: POINT-OF-CARE METER ID UU13113803
[2017-05-25 11:51] LABS: EOSINOPHIL (%) 2.3 % (0-5); EOSINOPHIL COUNT 0.1 K/uL (0-0.3); HEMATOCRIT 29.6 % (36.0-46.0); IMMATURE GRANULOCYTE (%) 0.2 % (0.0-0.7); INSTRUMENT ABS NEUTROPHIL CT 4.1 K/uL; LYMPHOCYTE COUNT 0.6 K/uL (1.0-2.8); MCH 27.4 PG (29.0-34.0); MCHC 31.4 G/DL (30.0-36.0); MCV 87.3 FL (83-99); MEAN PLAT.VOLUME 10.7 uM^3 (9.5-12.4); MONOCYTE COUNT 0.3 K/uL (0-0.8); NEUTROPHIL (%) 80.2 % (45-76); NEUTROPHIL COUNT 4.1 K/uL (1.8-6.4); RBC DIS.WIDTH-CV 13.8 % (11.8-14.6); RBC DIS.WIDTH-SD 43.9 % (39-53); RED BLOOD COUNT 3.39 M/uL (3.80-5.20); WHITE BLOOD COUNT 5.2 K/uL (4.1-10.2)
[2017-05-25 12:00] LABS: PLATELET COUNT 76 K/uL (156-360)
[2017-05-25 12:27] LABS: ANION GAP 5 MEQ/L (2-14); CHLORIDE 106 MEQ/L (99-109); GLUCOSE 354 mg/dL (70-99); MAGNESIUM 1.2 mg/dl (1.3-2.7); POTASSIUM 5.3 MEQ/L (3.7-5.4); SAMPLE HEMOLYSIS CHECK 0; SAMPLE ICTERIC CHECK 0; SAMPLE LIPEMIA CHECK 0; UREA NITROGEN (BUN) 13 mg/dL (9-23)
[2017-05-25 12:28] LABS: GFR ESTIMATE (CALCULATED) > 59 mL/min/; SODIUM 140 MEQ/L (136-147)
[2017-05-25 14:15] LABS: POINT-OF-CARE METER ID UU13113803
[2017-05-25] MEDS ORDERED: HUMALOG100 UNIT/1 SC (14:54)
[2017-05-25] MEDS ORDERED: ADVAIR HFA120 INHALA IH (14:55)
[2017-05-25] MEDS ORDERED: SPIRIVA RESPIMAT4 GM IH (14:56)
[2017-05-25] MEDS ORDERED: MORPHINE SULFAT30 M2 PO (14:59)
[2017-05-25 18:22] LABS: POINT-OF-CARE METER ID UU13113803
[2017-05-25 22:59] LABS: POINT-OF-CARE METER ID UU13113748
[2017-05-26] VITALS (16 sets, daily range): BP systolic 102–181; BP diastolic 54–95
[2017-05-26 05:27] LABS: BASE EXCESS 5.7 mEq/L (-3 to +3); BICARBONATE 31.1 mEq/L (22-26); CARBOXY HGB 1.9 % (0-5); COMMENTS - BLOOD GASES A+C+; METHEMOGLOBIN 1.5 % (0-1.5); PCO2 49 mm Hg (35-45); PO2 101 mm Hg (80-100); SITE RR; TOTAL RESP RATE 14 resp/min; pH 7.41 (7.35-7.45)
[2017-05-26 07:20] LABS: INTER. NORMALIZED RATIO 1.2; PROTHROMBIN TIME 13.8 SEC (10.2-12.9)
[2017-05-26 08:09] LABS: EOSINOPHIL (%) 2.1 % (0-5); EOSINOPHIL COUNT 0.1 K/uL (0-0.3); IMMATURE GRANULOCYTE (%) 0.2 % (0.0-0.7); INSTRUMENT ABS NEUTROPHIL CT 3.6 K/uL; LYMPHOCYTE COUNT 0.7 K/uL (1.0-2.8); MCH 27.3 PG (29.0-34.0); MCHC 31.8 G/DL (30.0-36.0); MCV 85.9 FL (83-99); MONOCYTE COUNT 0.3 K/uL (0-0.8); NEUTROPHIL (%) 76.3 % (45-76); NEUTROPHIL COUNT 3.6 K/uL (1.8-6.4); RBC DIS.WIDTH-CV 13.7 % (11.8-14.6); RBC DIS.WIDTH-SD 43.6 % (39-53); RED BLOOD COUNT 3.26 M/uL (3.80-5.20); WHITE BLOOD COUNT 4.7 K/uL (4.1-10.2)
[2017-05-26 08:23] LABS: ANION GAP 8 MEQ/L (2-14); CHLORIDE 106 MEQ/L (99-109); GFR ESTIMATE (CALCULATED) > 59 mL/min/; SAMPLE HEMOLYSIS CHECK 0; SAMPLE ICTERIC CHECK 0; SAMPLE LIPEMIA CHECK 0; SODIUM 142 MEQ/L (136-147); UREA NITROGEN (BUN) 7 mg/dL (9-23)
[2017-05-26 08:24] LABS: GLUCOSE 121 mg/dL (70-99); MAGNESIUM 1.8 mg/dl (1.3-2.7); POTASSIUM 3.8 MEQ/L (3.7-5.4)
[2017-05-26 08:57] LABS: MEAN PLAT.VOLUME 10.8 uM^3 (9.5-12.4); PLAT.SUFFICIENCY DECREASED; PLATELET COUNT 81 K/uL (156-360)
[2017-05-26 08:58] LABS: POINT-OF-CARE METER ID UU14314082
[2017-05-26 11:51] LABS: POINT-OF-CARE METER ID UU14314082
[2017-05-26 19:20] LABS: POINT-OF-CARE METER ID UU13113675
[2017-05-27 00:11] LABS: POINT-OF-CARE METER ID UU14208753
[2017-05-27 05:28] VITALS: BP 170/79
[2017-05-27 06:52] LABS: POINT-OF-CARE METER ID UU14149397
[2017-05-27 08:10] VITALS: BP 128/84
[2017-05-27 09:31] LABS: EOSINOPHIL (%) 2.3 % (0-5); EOSINOPHIL COUNT 0.1 K/uL (0-0.3); HEMATOCRIT 29.3 % (36.0-46.0); IMMATURE GRANULOCYTE (%) 0.5 % (0.0-0.7); INSTRUMENT ABS NEUTROPHIL CT 4.8 K/uL; LYMPHOCYTE COUNT 0.5 K/uL (1.0-2.8); MCH 28.2 PG (29.0-34.0); MCHC 32.4 G/DL (30.0-36.0); MCV 86.9 FL (83-99); MEAN PLAT.VOLUME 10.4 uM^3 (9.5-12.4); MONOCYTE (%) 4.5 % (3-12); MONOCYTE COUNT 0.3 K/uL (0-0.8); NEUTROPHIL (%) 83.2 % (45-76); NEUTROPHIL COUNT 4.8 K/uL (1.8-6.4); PLATELET COUNT 85 K/uL (156-360); RBC DIS.WIDTH-CV 13.8 % (11.8-14.6); RBC DIS.WIDTH-SD 43.2 % (39-53); RED BLOOD COUNT 3.37 M/uL (3.80-5.20); WHITE BLOOD COUNT 5.8 K/uL (4.1-10.2)
[2017-05-27 09:45] LABS: ANION GAP 7 MEQ/L (2-14); CHLORIDE 104 MEQ/L (99-109); GFR ESTIMATE (CALCULATED) > 59 mL/min/; POTASSIUM 3.9 MEQ/L (3.7-5.4); SAMPLE HEMOLYSIS CHECK 0; SAMPLE ICTERIC CHECK 0; SAMPLE LIPEMIA CHECK 0; SODIUM 139 MEQ/L (136-147); UREA NITROGEN (BUN) 5 mg/dL (9-23)
[2017-05-27 09:46] LABS: GLUCOSE 213 mg/dL (70-99)
[2017-05-27 12:06] VITALS: BP 148/86
[2017-05-27 12:20] LABS: POINT-OF-CARE METER ID UU14208753
[2017-05-27 15:36] VITALS: BP 138/82
[2017-05-27 18:47] LABS: POINT-OF-CARE METER ID UU14208753
[2017-05-27 19:43] VITALS: BP 170/82
[2017-05-27 23:31] VITALS: BP 112/55
[2017-05-28 00:39] LABS: POINT-OF-CARE METER ID UU14149397
[2017-05-28 03:56] VITALS: BP 170/80
[2017-05-28 06:04] LABS: EOSINOPHIL (%) 3.5 % (0-5); EOSINOPHIL COUNT 0.2 K/uL (0-0.3); HEMATOCRIT 27.1 % (36.0-46.0); IMMATURE GRANULOCYTE (%) 0.4 % (0.0-0.7); INSTRUMENT ABS NEUTROPHIL CT 3.3 K/uL; LYMPHOCYTE COUNT 0.9 K/uL (1.0-2.8); MCH 28.3 PG (29.0-34.0); MCHC 32.8 G/DL (30.0-36.0); MONOCYTE (%) 5.4 % (3-12); MONOCYTE COUNT 0.3 K/uL (0-0.8); NEUTROPHIL (%) 71.5 % (45-76); NEUTROPHIL COUNT 3.3 K/uL (1.8-6.4); PLATELET COUNT 92 K/uL (156-360); RBC DIS.WIDTH-CV 13.7 % (11.8-14.6); RBC DIS.WIDTH-SD 42.9 % (39-53); RED BLOOD COUNT 3.15 M/uL (3.80-5.20); WHITE BLOOD COUNT 4.6 K/uL (4.1-10.2)
[2017-05-28 06:13] LABS: POINT-OF-CARE METER ID UU14149397
[2017-05-28 06:37] LABS: ANION GAP 9 MEQ/L (2-14); CHLORIDE 107 MEQ/L (99-109); GFR ESTIMATE (CALCULATED) > 59 mL/min/; SAMPLE HEMOLYSIS CHECK 0; SAMPLE ICTERIC CHECK 0; SAMPLE LIPEMIA CHECK 0; SODIUM 143 MEQ/L (136-147); UREA NITROGEN (BUN) 6 mg/dL (9-23)
[2017-05-28 06:40] LABS: GLUCOSE 83 mg/dL (70-99); POTASSIUM 3.1 MEQ/L (3.7-5.4)
[2017-05-28 07:20] VITALS: BP 111/73
[2017-05-28 08:00] VITALS: BP 111/73
[2017-05-28 09:06] LABS: MAGNESIUM 1.3 mg/dl (1.3-2.7)
[2017-05-28] MEDS ORDERED: ELIQUIS2.5 MG PO (10:58)
[2017-05-28] MEDS ORDERED: BACTROBAN OINTM22 GM TP (11:02)
[2017-05-28] MEDS ORDERED: OXYCODONE-APAP1 EACH PO (11:03)
[2017-05-28 11:34] LABS: POINT-OF-CARE METER ID UU14188577
[2017-05-28 12:00] VITALS: BP 130/70
[2017-06-08 14:34] LABS: RESEND RESULTS RESEND RESULTS
== END 2017-05-28 13:58 | disposition home or self-care (01) | DRG 492 ==
LOC: EME → EDBD 21:21 → EDOF 05-25 07:08 → 4WEST 05-25 07:08 → ENRESERV 05-25 07:10 → 4WEST 05-25 07:21 → ENRESERV 05-25 07:26 → CANRESERV 05-25 07:26 → 4WEST 05-26 13:06 → ENRESERV 05-26 13:12 → 3EAST 05-26 16:03
PROVIDERS: Emergency Medicine; Internal Medicine; Internal Medicine Critical Care Medicine; Internal Medicine Pulmonary Disease; Physician Assistant; Specialist; Surgery
DX: S82.841A Displaced bimalleolar fracture of right lower leg, initial encounter for closed fracture (principal); J44.1 Chronic obstructive pulmonary disease with (acute) exacerbation; J44.0 Chronic obstructive pulmonary disease with (acute) lower respiratory infection; J18.9 Pneumonia, unspecified organism; G40.909 Epilepsy, unspecified, not intractable, without status epilepticus; W01.198A Fall on same level from slipping, tripping and stumbling with subsequent striking against other object, initial encounter; I10 Essential (primary) hypertension; E03.9 Hypothyroidism, unspecified; E78.5 Hyperlipidemia, unspecified; F32.9 Major depressive disorder, single episode, unspecified; G43.909 Migraine, unspecified, not intractable, without status migrainosus; N17.9 Acute kidney failure, unspecified; E83.42 Hypomagnesemia; E86.0 Dehydration; J45.901 Unspecified asthma with (acute) exacerbation; J98.11 Atelectasis; L89.899 Pressure ulcer of other site, unspecified stage; D69.6 Thrombocytopenia, unspecified; E11.65 Type 2 diabetes mellitus with hyperglycemia; G47.33 Obstructive sleep apnea (adult) (pediatric); G93.40 Encephalopathy, unspecified; Y92.009 Unspecified place in unspecified non-institutional (private) residence as the place of occurrence of the external cause; I95.9 Hypotension, unspecified
CPT/HCPCS: 36600; 70450; 71010; 73590; 73600; 73630; 76000; 80048; 80202; 81003; 82010; 82803; 82948; 83605; 83735; 84100; 85025; 85027; 85379; 85610; 86850; 86900; 86901; 87040; 87086; 87641; 90686; 93005; 94640; 94640 76; 94760; 94799; 99202; 99281; 99285; C1713; C1751; J0131; J0330; J0456; J1170; J1815; J2250; J2405; J2543; J3010; J3370; J3475; J7030; J7050; J7120

== ENCOUNTER 2017-07-30 10:52 | Emergency (ER) | payer OTHER ==
[~2017-07-30] VITALS: Ht 162.6 cm; Wt 75.5 kg
[~2017-07-30 10:52] MED LIST changes: +BACTRIM,SEPT1 TABLET PO; +BACTROBAN OINTM22 GM TP; +ELIQUIS2.5 MG PO; +OXYCODONE-APAP1 EACH PO
[2017-07-30 11:38] LABS: BASOPHIL (%) 0.2 % (0-1); EOSINOPHIL (%) 1.2 % (0-5); EOSINOPHIL COUNT 0.1 K/uL (0-0.3); HEMATOCRIT 34.2 % (36.0-46.0); HEMOGLOBIN 10.9 G/DL (11.9-15.5); IMMATURE GRANULOCYTE (%) 0.7 % (0.0-0.7); LYMPHOCYTE (%) 14.6 % (15-42); LYMPHOCYTE COUNT 0.9 K/uL (1.0-2.8); MCH 27.4 PG (29.0-34.0); MCHC 31.9 G/DL (30.0-36.0); MCV 85.9 FL (83-99); MONOCYTE (%) 4.3 % (3-12); MONOCYTE COUNT 0.3 K/uL (0-0.8); NEUTROPHIL COUNT 4.8 K/uL (1.8-6.4); PLATELET COUNT 103 K/uL (156-360); RBC DIS.WIDTH-CV 13.4 % (11.8-14.6); RBC DIS.WIDTH-SD 42.1 % (39-53); RED BLOOD COUNT 3.98 M/uL (3.80-5.20)
[2017-07-30 11:46] LABS: ALBUMIN 3.7 g/dL (3.2-4.8); CHLORIDE 102 mEq/L (99-109); SODIUM 135 mEq/L (136-147)
[2017-07-30 11:47] LABS: MAGNESIUM 1.8 mg/dL (1.3-2.7)
[2017-07-30 11:50] LABS: TOTAL BILIRUBIN 0.5 mg/dL (0.0-1.0)
[2017-07-30 11:52] LABS: ALKALINE PHOSPHATASE 140 IU/L (3-129); CREATININE 0.9 mg/dL (0.6-1.3); GFR ESTIMATE (CALCULATED) > 59 mL/min/
[2017-07-30 11:53] LABS: UREA NITROGEN (BUN) 16 mg/dL (9-23)
[2017-07-30 11:54] LABS: AST (GOT) 14 IU/L (2-34)
[2017-07-30 11:55] LABS: ALT (GPT) 9 IU/L (3-49)
[2017-07-30 11:56] LABS: GLUCOSE 408 mg/dL (70-99)
[2017-07-30 12:04] LABS: TROP-I INTERPRETATION NEGATIVE; TROPONIN-I < 0.01 ng/mL (0.0-0.30)
[2017-07-30 12:55] LABS: THYROTROPIN (TSH) 0.57 MIU/L (0.4-5.5)
[2017-07-30] MEDS ORDERED: LEVAQUIN750 MG PO (17:01)
[2017-07-30] MEDS ORDERED: PREDNISONE20 MG PO (17:02)
[2017-07-30 18:42] VITALS: BP 169/76
== END 2017-07-30 18:43 | disposition home or self-care (01) ==
LOC: EME 10:52
PROVIDERS: Emergency Medicine
DX: J44.0 Chronic obstructive pulmonary disease with (acute) lower respiratory infection (principal); J12.9 Viral pneumonia, unspecified; E11.65 Type 2 diabetes mellitus with hyperglycemia; E11.40 Type 2 diabetes mellitus with diabetic neuropathy, unspecified; I10 Essential (primary) hypertension; E03.9 Hypothyroidism, unspecified; E78.5 Hyperlipidemia, unspecified; F41.9 Anxiety disorder, unspecified; F32.9 Major depressive disorder, single episode, unspecified; Z79.4 Long term (current) use of insulin; Z99.81 Dependence on supplemental oxygen; Z88.5 Allergy status to narcotic agent; Z88.8 Allergy status to other drugs, medicaments and biological substances
CPT/HCPCS: 71046; 71275; 80053; 82948; 83735; 84443; 84484; 85025; 93005; 94640; 99281; 99285; J1100; J7030; J7644

== ENCOUNTER 2017-09-23 08:03 | Day surgery (SDC) | payer OTHER ==
[~2017-09-23] VITALS: Ht 157.5 cm; Wt 79.4 kg
[~2017-09-23 08:03] MED LIST changes: +MORPHINE SULFAT30 M5 PO
[2017-09-23 09:30] VITALS: BP 135/71
[2017-09-23 13:03] VITALS: BP 146/74
[2017-09-23 13:41] VITALS: BP 144/74
== END 2017-09-23 13:56 | disposition home or self-care (01) ==
LOC: SDC 08:03
PROVIDERS: Obstetrics & Gynecology
DX: E11.69 Type 2 diabetes mellitus with other specified complication (principal); M86.171 Other acute osteomyelitis, right ankle and foot; E11.621 Type 2 diabetes mellitus with foot ulcer; L97.512 Non-pressure chronic ulcer of other part of right foot with fat layer exposed; M20.41 Other hammer toe(s) (acquired), right foot; M85.871 Other specified disorders of bone density and structure, right ankle and foot; I10 Essential (primary) hypertension; J44.9 Chronic obstructive pulmonary disease, unspecified; E03.9 Hypothyroidism, unspecified; Z79.4 Long term (current) use of insulin
CPT/HCPCS: 73630; 82948; 87070; 87075; 87205; 87641; 88305; 88311; J0131; J0690; J1170; J2250; J2704; J7120; S0020

== ENCOUNTER 2017-11-06 15:31 | Inpatient (IN) | payer OTHER ==
[~2017-11-06] VITALS: Ht 167.6 cm; Wt 83.5 kg
[~2017-11-06 15:31] MED LIST changes: -ATORVASTATIN CA20 MG PO; -MORPHINE SULFAT30 M5 PO
[2017-11-06 16:19] LABS: BASE EXCESS -0.7 mEq/L (-3 to +3); BICARBONATE 27.6 mEq/L (22-26); CARBOXY HGB 2.3 % (0-5); METHEMOGLOBIN 1.2 % (0-1.5); PCO2 63 mm Hg (35-45); PO2 78 mm Hg (80-100); SITE RR
[2017-11-06 16:20] LABS: COMMENTS - BLOOD GASES A+C+; DEVICE NC; O2 FLOW 2 L/MIN; TOTAL RESP RATE 18 resp/min; pH 7.25 (7.35-7.45)
[2017-11-06 16:22] LABS: BASOPHIL (%) 0.3 % (0-1); EOSINOPHIL (%) 1.3 % (0-5); EOSINOPHIL COUNT 0.1 K/uL (0-0.3); HEMATOCRIT 35.2 % (36.0-46.0); HEMOGLOBIN 11.3 G/DL (11.9-15.5); IMMATURE GRANULOCYTE (%) 0.3 % (0.0-0.7); LYMPHOCYTE (%) 9.1 % (15-42); LYMPHOCYTE COUNT 0.9 K/uL (1.0-2.8); MCH 28.1 PG (29.0-34.0); MCHC 32.1 G/DL (30.0-36.0); MCV 87.6 FL (83-99); MONOCYTE (%) 5.3 % (3-12); MONOCYTE COUNT 0.5 K/uL (0-0.8); NEUTROPHIL (%) 83.7 % (45-76); NEUTROPHIL COUNT 7.9 K/uL (1.8-6.4); PLATELET COUNT 111 K/uL (156-360); RBC DIS.WIDTH-CV 14.7 % (11.8-14.6); RBC DIS.WIDTH-SD 47.1 % (39-53); RED BLOOD COUNT 4.02 M/uL (3.80-5.20); WHITE BLOOD COUNT 9.5 K/uL (4.1-10.2)
[2017-11-06 16:32] LABS: ALBUMIN 4.2 g/dL (3.2-4.8); CHLORIDE 103 mEq/L (99-109); POTASSIUM 4.6 mEq/L (3.7-5.4); SODIUM 139 mEq/L (136-147)
[2017-11-06 16:35] LABS: GLUCOSE 277 mg/dL (70-99)
[2017-11-06 16:37] LABS: TOTAL BILIRUBIN 0.4 mg/dL (0.0-1.0)
[2017-11-06 16:38] LABS: ALKALINE PHOSPHATASE 141 IU/L (3-129); CREATININE 1.7 mg/dL (0.6-1.3); GFR ESTIMATE (CALCULATED) 32 mL/min/
[2017-11-06 16:39] LABS: UREA NITROGEN (BUN) 31 mg/dL (9-23)
[2017-11-06 16:40] LABS: AST (GOT) 29 IU/L (2-34)
[2017-11-06 16:41] LABS: ALT (GPT) 15 IU/L (3-49)
[2017-11-06 16:43] LABS: TROP-I INTERPRETATION NEGATIVE; TROPONIN-I < 0.01 ng/mL (0.0-0.30)
[2017-11-06 18:43] LABS: BICARBONATE 24.3 mEq/L (22-26); CARBOXY HGB 2.4 % (0-5); COMMENTS - BLOOD GASES A+C+; DEVICE NC; METHEMOGLOBIN 1.1 % (0-1.5); O2 FLOW 2 L/MIN; PCO2 53 mm Hg (35-45); PO2 92 mm Hg (80-100); SITE RR; TOTAL RESP RATE 21 resp/min
[2017-11-06 18:44] LABS: pH 7.27 (7.35-7.45)
[2017-11-06] MEDS ORDERED: HUMALOG100 UNIT/1 SC (19:38)
[2017-11-06] MEDS ORDERED: LEVEMIR100 UNIT/2 SC (19:38)
[2017-11-06] MEDS ORDERED: GLUCOPHAGE500 MG PO (19:38)
[2017-11-06] MEDS ORDERED: CALTRATE 600 +1 EAC1 PO (19:39)
[2017-11-06] MEDS ORDERED: OXYCODONE HCL5 MG PO (19:39)
[2017-11-06] MEDS ORDERED: MEGACE20 MG PO (19:39)
[2017-11-06 21:50] LABS: APPEARANCE CLEAR ((CLEAR)); BILIRUBIN NEGATIVE; BLOOD SMALL; COLOR YELLOW ((YELLOW)); GLUCOSE (STRIP) 150; KETONES NEGATIVE; LEUKOCYTES NEGATIVE; NITRITE NEGATIVE; PROTEIN (STRIP) NEGATIVE; SPECIFIC GRAVITY 1.015 (1.000-1.030); UROBILINOGEN 0.2 MG/DL (0.2-1.0)
[2017-11-06 22:06] LABS: BACTERIA NONE SEEN /HPF; EPITHELIAL CELLS RARE /HPF; MUCUS TRACE /LPF; RED BLOOD CELLS 0-5 /HPF (0-5); UCUL ADDED? NO; WHITE BLOOD CELLS 0-5 /HPF (0-5)
[2017-11-06 22:12] LABS: BASE EXCESS -0.8 mEq/L (-3 to +3); BICARBONATE 26.4 mEq/L (22-26); METHEMOGLOBIN 0.9 % (0-1.5); PCO2 55 mm Hg (35-45); PO2 83 mm Hg (80-100)
[2017-11-06 22:13] LABS: COMMENTS - BLOOD GASES C+; DEVICE NC; MECHANICAL RATE 16 resp/min; O2 FLOW 2 L/MIN; SITE RR; pH 7.29 (7.35-7.45)
[2017-11-07 04:11] VITALS: BP 111/64
[2017-11-07 07:30] VITALS: BP 135/67
[2017-11-07 09:22] LABS: BASE EXCESS 0.8 mEq/L (-3 to +3); CARBOXY HGB 2.1 % (0-5); COMMENTS - BLOOD GASES A+C+; DEVICE NC; METHEMOGLOBIN 1.6 % (0-1.5); O2 FLOW 2 L/MIN; PCO2 50 mm Hg (35-45); PO2 92 mm Hg (80-100); SITE RR; pH 7.34 (7.35-7.45)
[2017-11-07 10:30] LABS: HEMATOCRIT 31.7 % (36.0-46.0); HEMOGLOBIN 9.9 G/DL (11.9-15.5); MCH 27.4 PG (29.0-34.0); MCHC 31.2 G/DL (30.0-36.0); MCV 87.8 FL (83-99); PLATELET COUNT 86 K/uL (156-360); RBC DIS.WIDTH-CV 14.6 % (11.8-14.6); RED BLOOD COUNT 3.61 M/uL (3.80-5.20); WHITE BLOOD COUNT 5.7 K/uL (4.1-10.2)
[2017-11-07 11:12] LABS: CHLORIDE 104 MEQ/L (99-109); GLUCOSE 246 mg/dL (70-99); POTASSIUM 4.2 MEQ/L (3.7-5.4); SODIUM 136 MEQ/L (136-147); UREA NITROGEN (BUN) 16 mg/dL (9-23)
[2017-11-07 11:13] LABS: CREATININE 0.7 MG/DL (0.6-1.3); GFR ESTIMATE (CALCULATED) > 59 mL/min/
[2017-11-07 11:45] VITALS: BP 137/62
[2017-11-07 16:36] VITALS: BP 130/78
[2017-11-07 19:56] VITALS: BP 139/75
[2017-11-08] VITALS: BP 141/89
[2017-11-08 03:08] VITALS: BP 145/87
[2017-11-08 06:35] LABS: HEMATOCRIT 31.7 % (36.0-46.0); HEMOGLOBIN 10.7 G/DL (11.9-15.5); MCH 28.4 PG (29.0-34.0); MCHC 33.8 G/DL (30.0-36.0); MCV 84.1 FL (83-99); PLATELET COUNT 98 K/uL (156-360); RBC DIS.WIDTH-SD 43.1 % (39-53); RED BLOOD COUNT 3.77 M/uL (3.80-5.20); WHITE BLOOD COUNT 5.7 K/uL (4.1-10.2)
[2017-11-08 06:48] LABS: CHLORIDE 102 MEQ/L (99-109); CREATININE 0.7 MG/DL (0.6-1.3); GFR ESTIMATE (CALCULATED) > 59 mL/min/; GLUCOSE 192 mg/dL (70-99); POTASSIUM 4.1 MEQ/L (3.7-5.4); SODIUM 139 MEQ/L (136-147); UREA NITROGEN (BUN) 13 mg/dL (9-23)
[2017-11-08 08:24] VITALS: BP 157/92
[2017-11-08 12:36] VITALS: BP 193/97
[2017-11-08 13:11] VITALS: BP 128/73
== END 2017-11-08 13:46 | disposition home or self-care (01) | DRG 682 ==
LOC: EME 15:31 → EDOF 11-07 01:10 → 4EAST 11-07 01:10 → ENRESERV 11-07 01:11 → EDOF 11-07 02:22 → ENRESERV 11-07 02:24 → 4EAST 11-07 03:34 → ENRESERV 11-07 15:35 → 5SOUTH 11-07 16:26 → ENPENDDIS 11-08 12:37 → 5SOUTH 11-08 13:46
PROVIDERS: Emergency Medicine; Hospitalist
DX: N17.9 Acute kidney failure, unspecified (principal); J96.02 Acute respiratory failure with hypercapnia; G92 Toxic encephalopathy; E87.4 Mixed disorder of acid-base balance; E11.9 Type 2 diabetes mellitus without complications; G47.30 Sleep apnea, unspecified; E66.9 Obesity, unspecified; E78.5 Hyperlipidemia, unspecified; G89.29 Other chronic pain; I95.9 Hypotension, unspecified; G40.909 Epilepsy, unspecified, not intractable, without status epilepticus; T40.2X5A Adverse effect of other opioids, initial encounter; T48.1X5A Adverse effect of skeletal muscle relaxants [neuromuscular blocking agents], initial encounter; T42.6X5A Adverse effect of other antiepileptic and sedative-hypnotic drugs, initial encounter; D69.6 Thrombocytopenia, unspecified; E86.0 Dehydration; Z68.30 Body mass index [BMI] 30.0-30.9, adult; E03.9 Hypothyroidism, unspecified; F11.20 Opioid dependence, uncomplicated; I10 Essential (primary) hypertension; Z79.84 Long term (current) use of oral hypoglycemic drugs; Z79.01 Long term (current) use of anticoagulants; J44.9 Chronic obstructive pulmonary disease, unspecified
CPT/HCPCS: 36600; 70450; 71045; 80048; 80053; 81003; 82010; 82803; 82948; 83605; 84484; 85025; 85027; 86850; 86900; 86901; 87040; 87641; 93005; 94002; 94010; 99281; 99285; J0456; J0696; J1815; J1956; J2310; J7030